=== PATIENT | female | born 1985 | race Caucasian/White ===

== ENCOUNTER → 2020-04-30 13:39 | Outpatient (BNVA) | payer OTHER, SELFPAY | PROVIDERS: PCP Hospitalist; Visit Provider Obstetrics & Gynecology | DX: Z76.89 Persons encountering health services in other specified circumstances (principal) | CPT/HCPCS: 99213 ==

== ENCOUNTER → 2020-05-23 11:51 | Outpatient (BNVA) | payer OTHER, SELFPAY | PROVIDERS: PCP Hospitalist; Visit Provider Obstetrics & Gynecology | DX: Z30.9 Encounter for contraceptive management, unspecified (principal); R45.4 Irritability and anger; F41.9 Anxiety disorder, unspecified | CPT/HCPCS: 99212 ==

== ENCOUNTER → 2020-06-09 12:19 | Outpatient (BNVA) | payer OTHER, SELFPAY | PROVIDERS: Visit Provider Obstetrics & Gynecology | DX: Z76.89 Persons encountering health services in other specified circumstances (principal) ==

== ENCOUNTER 2020-06-16 14:00 | Outpatient (RCR) | payer OTHER, SELFPAY ==
--- NOTE | 2020-05-09 16:16 | P.PNPSP_ITS ---
Subjective Subjective Date of Service: 05/07/20 Reason For Visit: depression Interim History: Pt reports that she is tolerating 50mg Sertraline without issue Also tolerating Clonidine 0.1mg QD for anxiety, reports an overall positive 2 weeks, but did have one explosive episode on Tuesday when she yelled and threw things Medication Compliance: Yes Side effects from medications: No Review of Systems Constitutional: Reports no additional constitutional complaints Denies dizziness Denies dizziness Psychiatric: Denies depression and Reports irritability Mental Status Exam Mental Status Exam Patient Appearance: Well Grooomed Level of Consciousness: Appropriate and Alert Patient Behavior: Appropriate Mood Description: Calm Affect Description: Calm Speech Pattern: Clear Thought Process: Intact Thought Content: positive for Intact Depressive Symptoms: Feelings of Guilt Abnormal Motor Activity Signs and Symptoms: Agitation Judgement: Good Assessment & Plan Assessment & Plan (1) Major depressive disorder, recurrent, mild: Status: Acute Code(s): F33.0 - Major depressive disorder, recurrent, mild Assessment and Plan: * Increase Clonidine to BID * F/u 2 weeks Greater than 50% of the session was spent on counseling and/or coordination of care Discharge Plan Discharge Attending provider: Jenny Barboza Medications: No Action clonidine HCl 0.1 mg tablet 0.1 mg PO BID PRN (Reason: anxiety) Qty: 60 RF: 0 desogestrel-ethinyl estradiol [Apri] 0.15-0.03 mg tablet 1 tab PO DAILY 28 Days Qty: 28 RF: 2
--- NOTE | 2020-05-28 13:52 | HO.PHPPROGNO ---
Subjective Subjective Date of Service: 05/28/20 Reason For Visit: depression Interim History: Pt reports she has been doing well with Sertraline and Clonidine She has been taking PM doses of Clonidine 1/2 tab at a time as it makes her sleepy in the afternoons. She tolerates AM doses well. She has discontinues her BC as she was experiencing significant agitation and irritability--has resolved since discontinuing. Medication Compliance: Yes Side effects from medications: No Review of Systems Denies dizziness Denies dizziness Psychiatric: Reports anxiety (improving) and Reports irritability (improving) Mental Status Exam Mental Status Exam Patient Appearance: Well Grooomed and Appropriate Level of Consciousness: Awake, Appropriate and Alert Patient Behavior: Appropriate Mood Description: Calm and Appropriate Affect Description: Calm and Appropriate Ability to Follow Directions: Excellent Speech Pattern: Clear Thought Content: positive for Intact and positive for Goal Oriented Judgement: Good Assessment & Plan Assessment & Plan (1) Major depressive disorder, recurrent, mild: Status: Acute Code(s): F33.0 - Major depressive disorder, recurrent, mild Assessment and Plan: No change to current regimen Refilled medications Follow up 3 weeks Greater than 50% of the session was spent on counseling and/or coordination of care Discharge Plan Discharge Attending provider: Jenny Barboza Medications: No Action desogestrel-ethinyl estradiol [Apri] 0.15-0.03 mg tablet 1 tab PO DAILY 28 Days Qty: 28 RF: 1 sertraline 50 mg tablet 50 mg PO DAILY Qty: 30 RF: 1 clonidine HCl 0.1 mg tablet 0.1 mg PO BID PRN (Reason: anxiety) Qty: 60 RF: 1
--- NOTE | 2020-06-17 14:05 | HO.OPPROGNO ---
Subjective Subjective Date of Service: 06/16/20 Reason For Visit: depression Interim History: Pt reporting that she is feeling so good . She reports that she finds current medication regimen has really helped to decrease her reactivity almost entirely. She reports that she still has feelings and gets angry, but is much more in control of her emotions and how she responds to stressors. She report that her has also noticed a difference and has made comment to her about it. She reports her DESKTOP PUBLISHING OPERATOR would like to trial Mirena, though patient is quite fearful she will have same reaction as she did with PO BC. Medication Compliance: Yes Side effects from medications: No Review of Systems Denies dizziness Denies behavioral changes and Denies dizziness Psychiatric: Denies abnormal sleep pattern, Denies behavioral changes, Denies irritability, Denies anhedonia, Denies homicidal ideation and Denies suicidal ideation Mental Status Exam Mental Status Exam Patient Appearance: Well Grooomed and Appropriate Patient Orientation: Person, Place, Time and Situation Level of Consciousness: Awake, Appropriate and Alert Patient Behavior: Appropriate Mood Description: Calm, Appropriate and Cheerful Affect Description: Calm, Appropriate and Cheerful Speech Pattern: Clear Thought Process: Intact and Goal Oriented Thought Content: positive for Intact and positive for Linear Judgement: Good Discharge Plan Discharge Attending provider: Jenny Barboza Medications: No Action sertraline 50 mg tablet 50 mg PO DAILY Qty: 30 RF: 1 clonidine HCl 0.1 mg tablet 0.1 mg PO BID PRN (Reason: anxiety) Qty: 60 RF: 1 Assessment & Plan Assessment & Plan (1) Major depressive disorder, recurrent, mild: Status: Acute Code(s): F33.0 - Major depressive disorder, recurrent, mild Assessment and Plan: No change to current regimen Continue at Sertraline 50mg QD and Clonidine 0.1mg AM and 0.05mg PRN in afternoon and evenings Greater than 50% of the session was spent on counseling and/or coordination of care
== END 2020-07-24 23:55 | disposition home or self-care (01) ==
LOC: HO.PAOS 14:00
PROVIDERS: Visit Provider Nurse Practitioner Psychiatric/Mental Health
DX: F33.0 Major depressive disorder, recurrent, mild (principal); Z79.899 Other long term (current) drug therapy

== ENCOUNTER 2020-06-30 14:00 | Outpatient (RCR) | payer OTHER, SELFPAY | END 2020-07-03 23:55 | disposition home or self-care (01) | LOC: HO.PAOS 14:00 | PROVIDERS: Visit Provider Counselor Mental Health | DX: F41.0 Panic disorder [episodic paroxysmal anxiety] (principal); F33.0 Major depressive disorder, recurrent, mild | CPT/HCPCS: 90834 ==

== ENCOUNTER 2020-07-31 09:26 | Outpatient (REF) | payer OTHER, SELFPAY ==
[2020-08-01 19:57] LABS: C. trachomatis RNA TMA NOT DETECTED (NOT DETECTED); N. gonorrhoeae RNA TMA NOT DETECTED (NOT DETECTED)
== END 2020-07-31 09:27 | disposition home or self-care (01) ==
LOC: HO.LAB 09:26
PROVIDERS: PCP Hospitalist; Visit Provider Obstetrics & Gynecology
DX: Z79.3 Long term (current) use of hormonal contraceptives (principal)
CPT/HCPCS: 36415; 87491; 87591; 99212

== ENCOUNTER 2020-09-25 15:09 | Outpatient (REF) | payer OTHER, SELFPAY ==
[2020-09-26 09:57] LABS: C. trachomatis RNA TMA NOT DETECTED (NOT DETECTED); N. gonorrhoeae RNA TMA NOT DETECTED (NOT DETECTED)
== END 2020-09-25 15:10 | disposition home or self-care (01) ==
LOC: HO.LAB 15:09
PROVIDERS: Visit Provider Obstetrics & Gynecology
DX: Z30.430 Encounter for insertion of intrauterine contraceptive device (principal); N92.0 Excessive and frequent menstruation with regular cycle; Z53.29 Procedure and treatment not carried out because of patient's decision for other reasons
CPT/HCPCS: 36415; 87491; 87591; 99212

== ENCOUNTER 2020-12-10 12:27 | Outpatient (REF) | payer OTHER, SELFPAY ==
[2020-12-10 14:05] LABS: Erythrocyte Sedimentation Rate 25 MM/HR (0-20)
[2020-12-10 14:10] LABS: Alanine Aminotransferase 20 U/L (0-31); Albumin Level 3.7 g/dL (3.5-5.0); Alkaline Phosphatase 90 U/L (39-117); Anion Gap 10 (12-20); Aspartate Amino Transferase 16 U/L (5-31); Bilirubin Total 0.4 mg/dL (0.0-1.0); Blood Urea Nitrogen 11 mg/dL (9-16); Calcium 8.8 mg/dL (8.4-10.2); Chloride 105 mmol/L (96-108); Estimated Glomerular Filt Rate > 60; Glucose Random 88 mg/dL (60-115); Potassium 4.1 mmol/L (3.3-5.1); Sodium 139 mmol/L (135-145); Total Protein 6.5 g/dL (6.5-8.0)
[2020-12-10 14:16] LABS: Carbon Dioxide 28 mmol/L (22-29)
[2020-12-10 14:44] LABS: Folate 8.9 ng/mL (> or = 4.0); Vitamin B12 341 pg/mL (200-900)
[2020-12-11 14:21] LABS: CRP High Sensitivity >10.0 mg/L
== END 2020-12-10 12:28 | disposition home or self-care (01) ==
LOC: HO.WFDLDS 12:27
PROVIDERS: Visit Provider Family Medicine
DX: G89.29 Other chronic pain (principal); M25.511 Pain in right shoulder; E53.8 Deficiency of other specified B group vitamins
CPT/HCPCS: 36415; 80053; 82607; 82746; 85652; 86141

== ENCOUNTER 2020-12-11 14:21 | Outpatient (REF) | payer OTHER, SELFPAY ==
--- NOTE | ~2020-12-11 | XR_ITS ---
EXAMINATION: XR CERVICAL SPINE CLINICAL INFORMATION: Cervicalgia. COMPARISON: Cervical spine radiographs dated 10/04/2007. TECHNIQUE: AP, lateral, and swimmer's views of the cervical spine. FINDINGS: Mild reversal of the normal cervical lordosis, which may be positional or related to muscular spasm. No acute fracture or subluxation. No loss of vertebral body height. Normal atlantoaxial alignment. Mild loss of intervertebral disc height with tiny anterior endplate osteophytes at C5-C6. No lytic or blastic osseous lesion. Unremarkable prevertebral soft tissues. XR/XR cervical spine 2V IMPRESSION: Mild reversal of the normal cervical lordosis, which may be positional or related to muscle spasm. Mild degenerative disc disease at C5-C6.
--- NOTE | ~2020-12-11 | XR_ITS ---
EXAMINATION: XR SHOULDER, RIGHT CLINICAL INFORMATION: Right shoulder pain. COMPARISON: None TECHNIQUE: AP, Grashey, scapular Y views of the right shoulder. FINDINGS: No acute fracture or dislocation. No joint space narrowing or marginal osteophytes. No osseous erosion. No abnormal soft tissue calcification. XR/XR shoulder RT min 2V IMPRESSION: Unremarkable examination.
== END 2020-12-11 14:22 | disposition home or self-care (01) ==
LOC: HO.HMGCX 14:21
PROVIDERS: PCP Hospitalist; Visit Provider Family Medicine
DX: G89.29 Other chronic pain (principal); M25.511 Pain in right shoulder; M54.2 Cervicalgia
CPT/HCPCS: 72040; 73030

== ENCOUNTER 2021-10-23 14:01 | Outpatient (REF) | payer OTHER, SELFPAY ==
[2021-10-23 17:36] LABS: MANUAL DIFF FLAG NO
[2021-10-23 17:43] LABS: Basophils Percent Auto 0.4 % (0-2); Eosinophils Absolute Auto 0.1 X10*3/uL (0.0-0.4); Hemoglobin 13.1 g/dl (12.0-16.0); Imm Gran Abs Auto 0.02 X10*3/uL (0.00-0.03); Imm Gran Pct Auto 0.2 % (0.0-0.4); Lymphocytes Absolute Auto 3.3 X10*3/uL (1.2-4.9); Lymphocytes Percent Auto 39.1 % (20-40); Mean Corpuscular HGB Conc 32.8 g/dl (31.0-35.0); Mean Corpuscular Hemoglobin 28.3 pg (27.0-33.0); Mean Corpuscular Volume 86.4 fL (80.0-98.0); Mean Platelet Volume 10.4 fL (9.4-12.3); Monocytes Absolute Auto 0.7 X10*3/uL (0.1-1.2); Monocytes Percent Auto 8.1 % (2-11); Neutrophils Absolute Auto 4.3 x10*3/uL (2.0-8.3); Neutrophils Percent Auto 51.2 % (45-73); Platelet Count 312 X10*3/uL (160-400); Red Blood Count 4.63 X10*6/uL (4.20-5.50); Red Cell Distribution Width 12.7 % (11.0-16.0); White Blood Count 8.4 X10*3/uL (4.8-10.8)
[2021-10-23 17:50] LABS: C Reactive Protein 1.54 mg/dL (< or = 0.50)
[2021-10-23 18:30] LABS: Erythrocyte Sedimentation Rate 19 MM/HR (0-20)
== END 2021-10-23 14:02 | disposition home or self-care (01) ==
LOC: HO.HMGCLDS 14:01
PROVIDERS: Visit Provider Physician Assistant Medical
DX: R51.9 Headache, unspecified (principal)
CPT/HCPCS: 36415; 85025; 85652; 86140

== ENCOUNTER 2023-07-29 11:32 | Outpatient (AMB) | payer OTHER, SELFPAY ==
[2023-07-29 11:43] VITALS: BP 110/70; BMI 39.7
--- NOTE | 2023-07-29 11:43 | MHC.PC.OV ---
Vital Signs 07/29/23 11:43 Height 5 ft 1 in Weight 210 lb 6 oz BMI 39.7 BP 110/70 Blood Pressure Location Lt brachial Position Sitting Intake Visit Reasons: Transfer of care, anxiety Intake Note: Patient is here for transfer of care, she states she is here for her anxiety. Allergies melon [MELON] Allergy (Intermediate, Verified 07/29/23 11:47) RASH pertussis vaccine,fluid [PERTUSSIS VACCINE,FLUID] Allergy (Intermediate, Verified 07/29/23 11:47) DIFFICULTY BREATHING sulfamethoxazole [From BACTRIM] Allergy (Intermediate, Verified 07/29/23 11:47) HIVES Tobacco use date assessed: 07/29/23 HPI Transfer of care, anxiety HPI Details Transfer of Care Prior PCP:?SV Last office visit/CPE: Acute issue(s): Anxiety -Sertraline 50mg has been working well for her and feels anxiety is under control. Cervical radiculitis -Has only been taking cyclobenzaprine as needed. Feels back pain is controlled. PMHx: Anxiety, cervical radiculitis SurgHx: Parial Hysterectomy. L knee arthroscopy. Appy FHx: Mom: HTN. Dad: HLD. pGM: Colon CA. mGM: DM. SocHx: Quit cigs 6-7 years ago. EtOH 2-3 drinks rarely. MJ daily. No other drugs. [facility] Medical History Normal Pap smear Annual physical exam Low back pain PCOS (polycystic ovarian syndrome) Anxiety Surgical History H/O: hysterectomy H/O arthroscopic knee surgery History of removal of cyst History of appendectomy Family History Father No problems noted. Mother Hypertension Sister In good health Paternal Grandmother Colon cancer Social History Housing: Apartment Alcohol intake: current Patient Tobacco Use Status: Former Tobacco user Years Smoked: 15 yrs e-Cigarette/Vaping Use: Currently Using Frequency of e-Cigarette/Vaping Use: CBD pen Second Hand Smoke Exposure: No service: No Current occupational status: employed Current occupation: hairdresser Current occupational exposures/hazards: No Sexual orientation: Straight/Heterosexual Gender identity: Female Cognitive needs: No Hearing needs: No Vision needs: No Questionnaire PHQ-9 Over the last 2 weeks, how often have you been bothered by any of the following problems? 1. Little interest or pleasure in doing things: not at all 2. Feeling down, depressed, or hopeless: not at all 3. Trouble falling or staying asleep, or sleeping too much: not at all 4. Feeling tired or having little energy: not at all 5. Poor appetite or overeating: not at all 6. Feeling bad about yourself - or that you are a failure or have let yourself or your family down: not at all 7. Trouble concentrating on things, such as reading the newspaper or watching television: not at all 8. Moving or speaking so slowly that other people could have noticed. Or the opposite - being so fidgety or restless that you have been moving around a lot more than usual: not at all 9. Thoughts that you would be better off or of hurting yourself in some way: not at all Total score: 0 Depression Screening Interpretation: Negative Depression Screening Done: Yes Source: Developed by Drs. Tim Kee, Ronel Frederick, Joseluis Naranjo and colleagues, with an educational vilma from [employer]. Thrive Questionnaire Date Thrive assessed: 03/18/22 LUCY-7 AMB Questionnaire LUCY-7 Date LUCY - 7 assessed: 07/29/23 Feeling nervous, anxious, or on edge: 1 = Several days Not being able to stop or control worryin = Several days Worrying too much about different things: 1 = Several days Trouble relaxin = Not at all Being so restless that it is hard to sit still: 0 = Not at all Becoming easily annoyed or irritable: 1 = Several days Feeling afraid as if something awful might happen: 0 = Not at all Total LUCY-7 score (0-4 normal; 5-9 mild; 10-14 moderate; 15-21 severe): 4 Source: Developed by Drs. Tim Kee, Ronel Frederick, Joseluis Naranjo and colleagues, with an educational vilma from [employer]. Review of Systems Const Denies chills, Denies fatigue, Denies fever(s), Denies headache(s) and Denies weakness ENT Denies dizziness and Denies headache(s) Card Denies chest pain, Denies lightheadedness, Denies dyspnea and Denies other (Palpitations) Resp Denies cough, Denies dyspnea, Denies wheezing and Denies other ( shortness of breath) Musc Denies numbness and Denies tingling Neuro Denies dizziness, Denies headache(s), Denies numbness, Denies tingling, Denies paresthesias and Denies weakness Psych Denies anxiety and Denies depression Endo Denies fatigue Aller/Immun Denies wheezing Physical exam (Primary Care) Vital Signs: Last Vital Signs BP 110/70 07/29/23 11:43 BMI result Body Mass Index 39.7 Tobacco/Smoking Status: Tobacco use Status Tobacco use date assessed 07/29/23 07/29/23 11:54 Patient Tobacco Use Status Former Tobacco user 07/29/23 11:45 e-Cigarette/Vaping Use Currently Using 07/29/23 11:54 PHQ-9: PHQ-9 Score PHQ-9: Total score 0 07/29/23 11:54 Depression Screening Interpretation: Negative Thrive Assessment: Date of Thrive Assessment Date Thrive assessed 03/18/22 07/29/23 11:45 Const General: no acute distress and well developed Nutritional Appearance: well nourished Orientation/consciousness: patient oriented x3 HENMT Head: Yes normocephalic and Yes atraumatic Eyes General: appearance normal, both eyes and all related structures Pupils: Equal, round and reactive pupils present EOM: EOMs intact bilaterally Resp Effort & Inspection: normal respiratory effort Auscultation: clear to auscultation bilaterally Cardio Rate: regular rate Rhythm: regular rhythm Heart sounds: S1 normal heart sound present, S2 normal heart sound present, no gallops, no murmurs and no rubs Neuro General: patient oriented x3 and gait normal Cranial nerves: Yes Equal, round and reactive pupils present Psych Affect: normal affect Assessment and Plan Assessment & Plan (1) Anxiety: Code(s): F41.9 - Anxiety disorder, unspecified Plan: Stable?and?controlled?on?sertraline Continue?medication?as?prescribed Has?had?a?therapist?and?says?she?can?still?contact?her?therapist?if?she?were?to?need?her?help?again. (2) Cervical radiculitis: Code(s): M54.12 - Radiculopathy, cervical region Plan: Uses?NSAIDs?and?intermittent?cyclobenzaprine Continue?current?regimen Encouraged?her?to?continue?the?exercises?she?has?learned?in?physical?therapy Currently?stable (3) Laboratory exam ordered as part of routine general medical examination: Code(s): Z00.00 - Encounter for general adult medical examination without abnormal findings Plan: Check?lab Orders: Orders Complete Blood Count Auto Diff Today Z00.00 - Encounter for general adult medical examination without abnormal findings Comprehensive Horatio. Panel Fast Today Z00.00 - Encounter for general adult medical examination without abnormal findings TSH reflex Free T4 Today Z00.00 - Encounter for general adult medical examination without abnormal findings UA and rflx microscopic Today Z00.00 - Encounter for general adult medical examination without abnormal findings Lipid Panel Today Z00.00 - Encounter for general adult medical examination without abnormal findings Microalbumin, Random (w Creat) Today I10 - Essential (primary) hypertension Coding Level of Care Code Est Pt Level 3 (70093) Diagnoses Anxiety F41.9 Cervical radiculitis M54.12 Laboratory exam ordered as part of routine general medical examination Z00.00
== END 2023-07-29 12:17 | disposition home or self-care (01) ==
PROVIDERS: PCP Hospitalist; Visit Provider Family Medicine
DX: F41.9 Anxiety disorder, unspecified (principal); M54.12 Radiculopathy, cervical region
CPT/HCPCS: 99213

== ENCOUNTER 2023-10-17 10:08 | Outpatient (REF) | payer OTHER, SELFPAY ==
[2023-10-17 11:43] LABS: MANUAL DIFF FLAG NO
[2023-10-17 12:05] LABS: Basophils Percent Auto 0.2 % (0-2); Eosinophils Absolute Auto 0.1 X10*3/uL (0.0-0.4); Eosinophils Percent Auto 1.5 % (0-4); Hematocrit 39.4 % (37.0-47.0); Hemoglobin 13.1 g/dl (12.0-16.0); Imm Gran Abs Auto 0.03 X10*3/uL (0.00-0.03); Imm Gran Pct Auto 0.3 % (0.0-0.4); Lymphocytes Absolute Auto 2.6 X10*3/uL (1.2-4.9); Lymphocytes Percent Auto 29.9 % (20-40); Mean Corpuscular HGB Conc 33.2 g/dl (31.0-35.0); Mean Corpuscular Hemoglobin 29.1 pg (27.0-33.0); Mean Corpuscular Volume 87.6 fL (80.0-98.0); Mean Platelet Volume 10.4 fL (9.4-12.3); Monocytes Absolute Auto 0.5 X10*3/uL (0.1-1.2); Monocytes Percent Auto 5.6 % (2-11); Neutrophils Absolute Auto 5.4 x10*3/uL (2.0-8.3); Neutrophils Percent Auto 62.5 % (45-73); Platelet Count 259 X10*3/uL (160-400); Red Cell Distribution Width 12.3 % (11.0-16.0); White Blood Count 8.6 X10*3/uL (4.8-10.8)
[2023-10-17 12:22] LABS: Appearance Urine Clear; Color Urine Yellow; Glucose Urine UA Negative (Negative); Leukocyte Esterase Urine Negative (Negative); Nitrite Urine Negative (Negative); PH 6.5 (5.0-9.0); Specific Gravity - Urine 1.025 (1.005-1.025); Urine Blood Negative (Negative); Urine Ketones Negative (Negative); Urine Protein Negative (Neg-Trace)
[2023-10-17 13:29] LABS: Creatinine Urine 189.93 mg/dL; Microalbum/Creatinine Ratio Ur 4.2 ug/mg cr (<30)
[2023-10-17 13:54] LABS: Alanine Aminotransferase 16 U/L (0-31); Albumin Level 3.6 g/dL (3.5-5.0); Alkaline Phosphatase 86 U/L (39-117); Anion Gap 10 (12-20); Aspartate Amino Transferase 14 U/L (5-31); Bilirubin Total 0.3 mg/dL (0.0-1.0); Blood Urea Nitrogen 10 mg/dL (9-16); Calcium 8.7 mg/dL (8.4-10.2); Carbon Dioxide 26 mmol/L (22-29); Chloride 107 mmol/L (96-108); Cholesterol 198 mg/dL (<200); Estimated Glomerular Filt Rate > 60; Glucose Fasting 78 mg/dL (60-99); HDL Cholesterol 50 mg/dL (>40); LDL Cholesterol Calculated 127 mg/dL (<100); Potassium 3.4 mmol/L (3.3-5.1); Sodium 140 mmol/L (135-145); Total Protein 6.9 g/dL (6.5-8.0); Triglycerides 105 mg/dL (<150)
[2023-10-17 14:12] LABS: TSH reflex Free T4 1.34 uIU/mL (0.32-4.0)
== END 2023-10-17 10:09 | disposition home or self-care (01) ==
LOC: HO.WFDLDS 10:08
PROVIDERS: Visit Provider Family Medicine
DX: Z00.00 Encounter for general adult medical examination without abnormal findings (principal); I10 Essential (primary) hypertension
CPT/HCPCS: 36415; 80053; 80061; 81003; 82043; 82570; 84443; 85025

== ENCOUNTER 2023-12-23 13:54 | Outpatient (AMB) | payer OTHER, SELFPAY ==
[2023-12-23 14:10] VITALS: BP 130/78; PULSE 86; O2SAT 98; BMI 39.4
--- NOTE | 2023-12-23 14:10 | MHC.PC.OV ---
Vital Signs 12/23/23 14:10 Height 5 ft 1 in Weight 208 lb 6 oz BMI 39.4 BP 130/78 Blood Pressure Location Lt brachial Position Sitting Pulse 86 Pulse Source Pulse Oximeter Pulse Oximetry (%) 98 Oxygen Delivery Method Room Air Intake Visit Reasons: CPE with f/u labs and health maint Intake Note: Patient is here for her physical today and follow up on labs. Allergies melon [MELON] Allergy (Intermediate, Verified 12/23/23 14:13) RASH pertussis vaccine,fluid [PERTUSSIS VACCINE,FLUID] Allergy (Intermediate, Verified 12/23/23 14:13) DIFFICULTY BREATHING sulfamethoxazole [From BACTRIM] Allergy (Intermediate, Verified 12/23/23 14:13) HIVES Medication List - Last Reconciled 12/23/23 by Vadim Young MD cyclobenzaprine 10 mg PO TID PRN 30 days sertraline 50 mg PO DAILY Tobacco use date assessed: 12/23/23 Dental Screening Dental Screen Date: 12/23/23 Did you have a dental visit in the last 12 months?: No Did you have a dental problem in the last 6 months where you did not have access to dental care?: No Was dental information given to patient?: Patient declined HPI CPE with f/u labs and health maint HPI Details 38 y/o female presents for a CPE with f/u labs and health maintenance. Labs were drawn 10/17/23. Reviewed labs with pt. Triglycerides 105. TC 198. LDL 127. HDL 50. She reports she has been trying to eat better and has been walking for exercise. She reports hx of hysterectomy. [facility] Medical History Normal Pap smear Annual physical exam Low back pain PCOS (polycystic ovarian syndrome) Anxiety Surgical History H/O: hysterectomy H/O arthroscopic knee surgery History of removal of cyst History of appendectomy Family History Father No problems noted. Mother Hypertension Sister In good health Paternal Grandmother Colon cancer Social History Housing: Apartment Alcohol intake: current Patient Tobacco Use Status: Former Tobacco user Years Smoked: 15 yrs e-Cigarette/Vaping Use: Currently Using Second Hand Smoke Exposure: No service: No Current occupational status: employed Current occupation: hairZopaer Current occupational exposures/hazards: No Sexual orientation: Straight/Heterosexual Gender identity: Female Cognitive needs: No Hearing needs: No Vision needs: No Questionnaire Thrive Questionnaire Date Thrive assessed: 03/18/22 LUCY-7 AMB Questionnaire LUCY-7 Date LUCY - 7 assessed: 07/29/23 Source: Developed by Drs. Tim Kee, Ronel Frederick, Joseluis Naranjo and colleagues, with an educational vilma from [employer]. Review of Systems Const Denies chills, Denies fatigue, Denies fever(s), Denies headache(s) and Denies weakness Eyes Denies change in vision ENT Denies dizziness, Denies headache(s), Denies hearing loss, Denies nasal congestion, Denies sinus pain, Denies sinus pressure and Denies sore throat Card Denies chest pain, Denies lightheadedness, Denies dyspnea and Denies other (palpitations) Resp Denies cough, Denies dyspnea and Denies wheezing GI Denies abdominal pain, Denies melena, Denies hematochezia, Denies change in bowel habits, Denies dyspepsia and Denies nausea Denies hematuria and Denies dysuria Musc Denies abnormal gait, Denies myalgias, Denies arthralgias, Denies numbness and Denies tingling Skin/Breast Denies rash, Denies unusual bruising and Denies wounds Neuro Denies abnormal gait, Denies dizziness, Denies headache(s), Denies memory loss, Denies numbness, Denies Sensory deficit (Neuro), Denies tingling and Denies weakness Psych Denies anxiety, Denies depression and Denies memory loss Endo Denies cold intolerance, Denies fatigue, Denies heat intolerance, Denies polydipsia and Denies polyuria Chetan/Lymph Denies easy bleeding and Denies easy bruising Aller/Immun Denies wheezing Physical exam (Primary Care) Vital Signs: Last Vital Signs Pulse 86 12/23/23 14:10 BP 130/78 12/23/23 14:10 Pulse Ox 98 12/23/23 14:10 Oxygen Delivery Method Room Air 12/23/23 14:10 BMI result Body Mass Index 39.4 Tobacco/Smoking Status: Tobacco use Status Tobacco use date assessed 12/23/23 12/23/23 14:16 Patient Tobacco Use Status Former Tobacco user 12/23/23 14:12 e-Cigarette/Vaping Use Currently Using 12/23/23 14:12 Thrive Assessment: Date of Thrive Assessment Date Thrive assessed 03/18/22 12/23/23 14:12 Const General: no acute distress, well developed, alert and awake Nutritional Appearance: well nourished Orientation/consciousness: patient oriented x3 HENMT Head: Yes normocephalic and Yes atraumatic Ears: hearing grossly normal bilaterally and TM's normal bilaterally General nose exam: Normal external nose present and Normal nares present Mouth: Normal oral and palatal mucosa present and moist mucous membranes Teeth and gingiva: dentition normal Throat: Yes posterior oropharynx normal Eyes General: appearance normal, both eyes and all related structures Pupils: Equal, round and reactive pupils present and Pupil accommodation reflex normal EOM: EOMs intact bilaterally Neck Neck: Yes normal visual inspection, Yes no lymphadenopathy and Yes trachea midline Thyroid: Thyroid normal Carotids: no bruits Lymphatic: no lymphadenopathy noted Chest Chest palpation & inspection: normal inspection of the chest Resp Effort & Inspection: normal respiratory effort Auscultation: clear to auscultation bilaterally Cardio Rate: regular rate Rhythm: regular rhythm Heart sounds: S1 normal heart sound present, S2 normal heart sound present, no gallops, no murmurs and no rubs Bruits: no abdominal aortic bruits and no carotid bruits GI Palpation (GI): No Abdominal aortic bruit present, Soft to palpation, nontender, No hepatosplenomegaly present and No Rebound tenderness present Auscultation: normal bowel sounds General: Yes no CVA tenderness Back/Spine/Pelvis Back: no CVA tenderness Cervical Spine: cervical ROM normal and No Cervical spine tenderness Thoracic/Lumbar Spine: thoraco-lumbar ROM normal, No pain with thoraco-lumbar ROM, No thoracic spinal tenderness and No lumbar spinal tenderness Skin Lesions: no lesions Rashes: no rashes Trauma: no lacerations or abrasions Wounds: no wounds Nails: normal Neuro General: patient oriented x3 Cranial nerves: Yes Equal, round and reactive pupils present Cognition (Neuro): normal cognition Gait exam (Neuro): Normal gait present Motor exam (neuro): 5/5 motor strength present throughout Sensory Exam: No Sensory deficit (Neuro) Deep tendon reflexes (DTR's): Right patellar reflex intensity grade: 2+ and Left patellar reflex intensity grade: 2+ Extrem General: Yes normal to inspection and No edema Psych Appearance: grossly normal Affect: normal affect Attitude: cooperative Thought process: Normal thought process present Assessment and Plan Assessment & Plan (1) Adult general medical exam: Code(s): Z00.00 - Encounter for general adult medical examination without abnormal findings Plan: 38-year-old?female?presents?for?complete?physical?exam Encouraged?healthy?diet?with?active?lifestyle?and?plenty?of?exercise (2) Hypercholesterolemia: Code(s): E78.00 - Pure hypercholesterolemia, unspecified Plan: LDL?cholesterol?is?above?goal?of?less?than?100 Encouraged?a?diet?lower?in?saturated?fats?and?cholesterol.??Encouraged?ongoing?weight?loss (3) Major depressive disorder, recurrent, mild: Code(s): F33.0 - Major depressive disorder, recurrent, mild Plan: Currently?stable Continue?sertraline (4) Carpal tunnel syndrome: Code(s): G56.00 - Carpal tunnel syndrome, unspecified upper limb Plan: Referred?to?new?[facility]??Patient?requests??Kevin (5) Screening for cervical cancer: Code(s): Z12.4 - Encounter for screening for malignant neoplasm of cervix Plan: S/p?hysterectomy Follow-up?with?your?environmental protection economist?for?regular?environmental protection economist?visit (6) Family history of colon cancer: Code(s): Z80.0 - Family history of malignant neoplasm of digestive organs Plan: Family?history?of?colon?cancer.??Will?start?screening?at?age?40 Referred?to?Gastroenterology (7) Screening for colon cancer: Code(s): Z12.11 - Encounter for screening for malignant neoplasm of colon Plan: As?above Orders: Referrals Hand Surgery Referral G56.00 - Carpal tunnel syndrome, unspecified upper limb Gastroenterology Referral Z12.11 - Encounter for screening for malignant neoplasm of colon, Z80.0 - Family history of malignant neoplasm of digestive organs Coding Level of Care Code Est Pt Level 3 (79688) Est Pt Prev Care 18-39y([id number]) Diagnoses Adult general medical exam Z00.00 Hypercholesterolemia E78.00 Major depressive disorder, recurrent, mild F33.0 Carpal tunnel syndrome G56.00 Screening for cervical cancer Z12.4 Family history of colon cancer Z80.0 Screening for colon cancer Z12.11
== END 2023-12-23 15:05 | disposition home or self-care (01) ==
PROVIDERS: PCP Family Medicine; Visit Provider Family Medicine
DX: Z00.00 Encounter for general adult medical examination without abnormal findings (principal); F33.0 Major depressive disorder, recurrent, mild; E78.00 Pure hypercholesterolemia, unspecified; G56.00 Carpal tunnel syndrome, unspecified upper limb; Z80.0 Family history of malignant neoplasm of digestive organs; Z12.11 Encounter for screening for malignant neoplasm of colon
CPT/HCPCS: 99395

== ENCOUNTER 2024-07-30 09:31 | Outpatient (AMB) | payer OTHER, SELFPAY ==
[2024-07-30 09:34] VITALS: BP 128/76; PULSE 74; O2SAT 98; BMI 39.7
--- NOTE | 2024-07-30 09:34 | MHC.OFFVIS ---
Vital Signs 07/30/24 09:34 Height 5 ft 1 in Weight 209 lb 14.081 oz BMI 39.7 BP 128/76 Blood Pressure Location Rt brachial Position Sitting Pulse 74 Pulse Source Pulse Oximeter Pulse Oximetry (%) 98 Oxygen Delivery Method Room Air Intake Visit Reasons: Colonoscopy Screening Intake Note: NEW PATIENT Reason; in office colo scrn Prior hx of colo/egd? Initial Concerns/Questions? No significant concerns per pt. Allergies melon [MELON] Allergy (Intermediate, Verified 07/30/24 09:34) RASH pertussis vaccine,fluid [PERTUSSIS VACCINE,FLUID] Allergy (Intermediate, Verified 07/30/24 09:34) DIFFICULTY BREATHING sulfamethoxazole [From BACTRIM] Allergy (Intermediate, Verified 07/30/24 09:34) HIVES HPI HPI Colonoscopy Screening: Details: 39 year old? female with past medical history of carpal tunnel syndrome, obesity, anxiety, depression is here today for pre colonoscopy screening.? Patient was sent to us by her PCP.? This is her first colonoscopy screening.? Paternal grandmother diagnosed with colorectal cancer before age 50. Patient denies any gastrointestinal symptoms in the past or at present.? ? Denies history of difficulty with sedation or anesthesia in the past.? Negative for history of sleep apnea, however patient is going for sleep study. Patient reports that she snores when she sleeps.? Denies any history of cardiac, renal, pulmonary, or hepatic disease.?? No history of infectious? diseases like hepatitis A, B, C, HIV or tuberculosis.? Patient is not on any anticoagulation [facility] Medical History Anal warts (~2012) Normal Pap smear Annual physical exam Low back pain PCOS (polycystic ovarian syndrome) Anxiety Surgical History H/O: hysterectomy H/O arthroscopic knee surgery History of removal of cyst History of appendectomy Family History Father No problems noted. Mother Hypertension Sister In good health Paternal Grandmother Colon cancer Social History Housing: Apartment Alcohol intake: current Patient Tobacco Use Status: Former Tobacco user Years Smoked: 15 yrs e-Cigarette/Vaping Use: Currently Using Second Hand Smoke Exposure: No service: No Current occupational status: employed Current occupation: [employer] Current occupational exposures/hazards: No Sexual orientation: Straight/Heterosexual Gender identity: Female Cognitive needs: No Hearing needs: No Vision needs: No Review of Systems Const Denies weight gain and Denies weight loss ENT Reports no additional complaints, Denies dysphagia and Denies odynophagia Card Reports no additional complaints Resp Reports no additional complaints GI Denies abdominal pain, Denies belching, Denies melena, Denies bloating, Denies change in bowel habits, Denies dysphagia, Denies excessive flatus, Denies dyspepsia, Denies heartburn, Denies diarrhea, Denies loose stools, Denies nausea, Denies odynophagia and Denies vomiting Musc Reports no additional complaints Neuro Reports no additional complaints Psych Reports no additional complaints Endo Reports no additional complaints Physical Exam Vital Signs: Last Vital Signs Pulse 74 07/30/24 09:34 BP 128/76 07/30/24 09:34 Pulse Ox 98 07/30/24 09:34 Oxygen Delivery Method Room Air 07/30/24 09:34 BMI result Body Mass Index 39.7 Const General: healthy appearing and no acute distress Nutritional Appearance: obese Orientation/consciousness: patient oriented x3 Resp Effort & Inspection: normal respiratory effort, able to speak in complete sentences, no tracheal deviation and symmetric chest movement Auscultation: clear to auscultation bilaterally Cardio Rate: regular rate GI Inspection: Yes normal to inspection, No distended and Yes obesity Palpation (GI): Soft to palpation, not firm, nontender and No hepatosplenomegaly present Auscultation: normal bowel sounds General: Yes no CVA tenderness Back/Spine/Pelvis Back: no CVA tenderness Skin General skin exam: elasticity normal, turgor normal and dry skin Neuro General: patient oriented x3 Psych Appearance: grossly normal Mental Status: mental status grossly normal Assessment & Plan Assessment & Plan (1) Screening for colon cancer: Code(s): Z12.11 - Encounter for screening for malignant neoplasm of colon Category: Medical (2) Family history of colon cancer: Code(s): Z80.0 - Family history of malignant neoplasm of digestive organs Category: Medical Plan Patient denies any GI, cardiac or respiratory symptoms.? Denies any issues with anesthesia in the past.? Denies any history of sleep apnea.? No history infectious diseases in the past or present.? Not on any anticoagulation therapy.? Family history of CRC. Patient's paternal grandmother was diagnosed with CRC before age 50. Patient denies melena, hematochezia, unintentional weight loss or ribbon like stools.? Discussed at length the pre-procedure,? prep, diet & medications as well as what to expect prior, during and after the procedure.?? Stressed the importance of good bowel prep.? Recommended the use of Vaseline or Calmoseptine OTC & baby wipes with bowel movements to promote comfort.? ?Patient verbalizes understanding and agrees to plan of care.? She was given the opportunity to ask questions and all questions answered.? We will see her after the procedure.? Medications: New polyethylene glycol 3350 (Miralax) As directed by gastroenterology department at [facility] 238 grams PO ONCE 238 grams 0RF Z12.11 - Encounter for screening for malignant neoplasm of colon bisacodyl (Dulcolax (bisacodyl)) take 4 tabs at noon the day before your colonoscopy 20 mg (4 x 5 mg) PO ONCE 1 day 4 tabs 0RF Z12.11 - Encounter for screening for malignant neoplasm of colon Coding Level of Care Code New Pt Level 3 (27102) Diagnoses Screening for colon cancer Z12.11 Family history of colon cancer Z80.0 Time Spent (min) 40 Comment 30 minutes spent with patient and additional 10 minutes spent reviewing her records
== END 2024-07-30 11:12 | disposition home or self-care (01) ==
PROVIDERS: PCP Family Medicine; Visit Provider Nurse Practitioner Family
DX: Z01.818 Encounter for other preprocedural examination (principal); Z12.11 Encounter for screening for malignant neoplasm of colon; Z80.0 Family history of malignant neoplasm of digestive organs
CPT/HCPCS: 99202

== ENCOUNTER 2024-12-14 10:38 | Outpatient (REF) | payer OTHER, SELFPAY ==
--- OUTSIDE RECORDS SUMMARY | 2024-12-14 10:42 | XMS_ITS | Clinical Summary ---
Author Organization [address] [facility] Address [address] [place] [address] Phone Care Team Providers Care Row Boss Name Role Phone Vadim Young MD Primary Care Provider [phone] Allergies Active Allergy Reactions Criticality Noted Date Comments Cantaloupe 05/01/2024 Sulfamethoxazole-Trimethoprim 2018 Medications sertraline (ZOLOFT) 20 mg/mL concentrated solution Take 25 mg by mouth daily Active cyclobenzaprine (FLEXERIL) 10 mg tablet Take 1 tablet (10 mg total) by mouth 3 (three) times a day if needed for muscle spasms. 09/18/2023 Active Hospital, Clinic, or Other Facility Administered Medication Ordered Dose Route Frequency Start Date End Date Status triamcinolone acetonide (KENALOG-40) 40 mg/mL injection 40 mgIndications:Bilate ral carpal tunnel syndrome 40 mg syno Once PRN Procedure 11/26/2024 11/26/2024 Ended triamcinolone acetonide (KENALOG-40) 40 mg/mL injection 40 mgIndications:Bilate ral carpal tunnel syndrome 40 mg syno Once PRN Procedure 11/26/2024 11/26/2024 Ended Active Problems Problem Noted Date Diagnosed Date Bilateral carpal tunnel syndrome 06/11/2024 Melanocytic nevi of scalp and neck 09/29/2018 Changing pigmented skin lesion 08/22/2018 Encounters Date Type Department Care Team Description 11/26/2024 9:30 AM EDT Office Visit Orthopedic Surgery [facility] [address] [facility] [address] [place] [address] Laurel Perez MD Bilateral carpal tunnel syndrome (Primary Dx) from Last 3 Months Surgical History Surgery Date Site/Laterality Comments WRIST MASS EXCISION 07/25/2000 - 07/24/2001 Left Family History Medical History Relation Name Comments Hypertension Mother Relation Name Status Comments Father Alive Mother Alive Social History Tobacco Use Types Packs/Day Years Used Date Smoking Tobacco: Every Day Cigarettes Smokeless Tobacco: Never Alcohol Use Standard Drinks/Week Comments Yes 0 (1 standard drink = 0.6 oz pur e alcohol) Comments Unknown Sex and Gender Information Value Date Recorded Sex Assigned at Not on file Legal Sex Female 9:22 AM EST Gender Identity Not on file Sexual Orientation Not on file Obstetrics History Last Filed Vital Signs Vital Sign Reading Time Taken Comments Blood Pressure - - Pulse - - Temperature - - Respiratory Rate - - Oxygen Saturation - - Inhaled Oxygen Concentration - - Weight 90.7 kg (200 lb) 11/26/2024 9:31 AM EDT Height 154.9 cm (5' 1 ) 11/26/2024 9:31 AM EDT Body Mass Index 37.79 11/26/2024 9:31 AM EDT Plan of Treatment Health Maintenance Due Date Last Done Comments Breast Cancer Screening 1984 Hepatitis B Vaccines (1 of 3 - 19+ 3-dose series) 2003 Pneumococcal Vaccine: Pediatrics (0 to 5 Years) and At-Risk Patients (6 to 64 Years) (1 of 2 - PCV) 2003 Cervical Cancer Screening: P ap Smear 2005 COVID-19 Vaccine (3 - Pfizer risk series) 12/11/2020 11/13/2020, 10/23/2020 DTaP,Tdap,and Td Vaccines (2 - Td or Tdap) 11/03/2022 11/03/2012 Cholesterol Screening (Lipid Panel) 05/01/2024 Depression Screening 05/01/2024 HIV Screening 05/01/2024 Hepatitis C Screening 05/01/2024 Social Influencers of Health Screening 05/01/2024 Influenza Vaccine (Season Ended) 2025 HIB Vaccines Aged Out No longer eligi ble based on patient's age to complete this topic HPV Vaccines Aged Out No longer eligi ble based on patient's age to complete this topic Hepatitis A Vaccines Aged Out No long er eligible based on patient's age to complete this topic IPV Vaccines Aged Out No longer eligi ble based on patient's age to complete this topic MMR Vaccines Aged Out No longer eligi ble based on patient's age to complete this topic Meningococcal ACWY Vaccine Aged Out N o longer eligible based on patient's age to complete this topic Meningococcal B Vaccine Aged Out No l onger eligible based on patient's age to complete this topic RSV Immunization Patients Under 20 months Aged Out No longer eligible b ased on patient's age to complete this topic Varicella Vaccines Aged Out No longer eligible based on patient's age to complete this topic Procedures Procedure Name Priority Date/Time Associated Diagnosis Comments [place] INJECTION CARPAL TUNNEL THERAPEUTIC Routine 11/26/2024 9:30 AM EDT Bilateral carpal tunnel syndrome from Last 3 Months Results * [place] INJECTION CARPAL TUNNEL THERAPEUTIC (11/26/2024 9:30 AM EDT) Narrative Laurel Perez MD - 11/26/2024 9:30 AM EDT Laurel Perez MD ? 11/26/2024 ??1:28 PM Hand / UE Inj/Asp: bilateral carpal tunnel for carpal tunnel syndrome Indications: pain Details: 25 G needle, volar approach Medications (Right): 40 mg triamcinolone acetonide 40 mg/mL Medications (Left): 40 mg triamcinolone acetonide 40 mg/mL Patient's wrists were prepped with Betadine alcohol. ??A small wheal of 1% lidocaine with epinephrine was injected a centimeter and a half back from the primary flexion crease of the wrist and slightly ulnar of the palmaris. ??Once that had a chance to take effect we prepped the skin again and then I injected first the right and then the left wrist with Kenalog. ?? 25-gauge needle was utilized and slowly entered into the canal. ??I confirmed that we were within substance of the tendons. ??We then injected medication without difficulty. ??This process was then completed again on the left side. ??Bandages were applied. ??Patient tolerated this well. Informed Consent: ??Laterality: ??Bilateral ??Procedure/treatment, purpose, treatment alternatives, risks/potential complications and benefits explained: yes ?Consent given by: ??Patient ??Pre-procedure timeout performed: yes ?? us Laurel Perez MD IN CLINIC/BEDSIDE ORDERABLES Final Result from Last 3 Months Insurance MEDICAID - [place] Care Teams Row Boss Relationship Specialty Start Date End Date Vadim Young MD [address] [place] [address] Dr Rudy MA PCP - General 01/10/24
[2024-12-14 14:13] LABS: MANUAL DIFF FLAG NO
[2024-12-14 14:25] LABS: Basophils Percent Auto 0.5 % (0-2); Eosinophils Absolute Auto 0.1 X10*3/uL (0.0-0.4); Eosinophils Percent Auto 0.8 % (0-4); Hematocrit 42.3 % (37.0-47.0); Hemoglobin 13.8 g/dl (12.0-16.0); Imm Gran Abs Auto 0.02 X10*3/uL (0.00-0.03); Imm Gran Pct Auto 0.2 % (0.0-0.4); Lymphocytes Absolute Auto 2.5 X10*3/uL (1.2-4.9); Lymphocytes Percent Auto 30.1 % (20-40); Mean Corpuscular HGB Conc 32.6 g/dl (31.0-35.0); Mean Corpuscular Hemoglobin 29.4 pg (27.0-33.0); Mean Corpuscular Volume 90.2 fL (80.0-98.0); Mean Platelet Volume 10.3 fL (9.4-12.3); Monocytes Absolute Auto 0.6 X10*3/uL (0.1-1.2); Monocytes Percent Auto 7.2 % (2-11); Neutrophils Absolute Auto 5.1 x10*3/uL (2.0-8.3); Neutrophils Percent Auto 61.2 % (45-73); Platelet Count 248 X10*3/uL (160-400); Red Blood Count 4.69 X10*6/uL (4.20-5.50); Red Cell Distribution Width 12.1 % (11.0-16.0); White Blood Count 8.3 X10*3/uL (4.8-10.8)
[2024-12-14 14:31] LABS: Appearance Urine Clear; Color Urine Yellow; Glucose Urine UA Negative (Negative); Leukocyte Esterase Urine Negative (Negative); Nitrite Urine Negative (Negative); Specific Gravity - Urine 1.025 (1.005-1.025); Urine Blood Negative (Negative); Urine Ketones Negative (Negative); Urine Protein Negative (Neg-Trace)
[2024-12-14 14:48] LABS: Alanine Aminotransferase 19 U/L (0-31); Albumin Level 3.9 g/dL (3.5-5.0); Alkaline Phosphatase 76 U/L (39-117); Anion Gap 8 (12-20); Aspartate Amino Transferase 21 U/L (5-31); Bilirubin Total 0.3 mg/dL (0.0-1.0); Blood Urea Nitrogen 16 mg/dL (9-16); Calcium 9.5 mg/dL (8.4-10.2); Carbon Dioxide 29 mmol/L (22-29); Chloride 107 mmol/L (96-108); Cholesterol 205 mg/dL (<200); Estimated Glomerular Filt Rate > 60; Glucose Fasting 78 mg/dL (60-99); HDL Cholesterol 55 mg/dL (>40); LDL Cholesterol Calculated 138 mg/dL (<100); Potassium 3.9 mmol/L (3.3-5.1); Sodium 140 mmol/L (135-145); Total Protein 7.1 g/dL (6.5-8.0); Triglycerides 62 mg/dL (<150)
[2024-12-14 15:05] LABS: TSH reflex Free T4 0.73 uIU/mL (0.32-4.0)
[2024-12-14 15:32] LABS: Creatinine Urine 126.34 mg/dL; Microalbumin Urine < 5.0 mg/L
== END 2024-12-14 10:39 | disposition home or self-care (01) ==
LOC: HO.WFDLDS 10:38
PROVIDERS: Visit Provider Family Medicine
DX: Z00.00 Encounter for general adult medical examination without abnormal findings (principal); Z80.0 Family history of malignant neoplasm of digestive organs; I10 Essential (primary) hypertension
CPT/HCPCS: 36415; 80053; 80061; 81003; 82043; 82570; 84443; 85025

== ENCOUNTER 2024-12-24 08:47 | Outpatient (AMB) | payer OTHER, SELFPAY ==
--- NOTE | 2024-12-24 08:54 | A.OFFPC_ITS ---
Vital Signs 12/24/24 08:57 Height 5 ft 1 in Weight 202 lb 8 oz BMI 38.3 BP 110/80 Blood Pressure Location Rt brachial Position Sitting Respiration 14 Pulse 57 Pulse Source Pulse Oximeter Temp 97.9 F Temp Source Oral Pulse Oximetry (%) 98 Oxygen Delivery Method Room Air Intake Visit Reasons: CPE with f/u labs and health maint Intake Note: patient is scheduled for cpe Airline Customer Service Agent Required: No Is last menstrual period known: No Post menopausal: No Patient : No Allergies melon [MELON] Allergy (Intermediate, Verified 12/24/24 08:55) RASH pertussis vaccine,fluid [PERTUSSIS VACCINE,FLUID] Allergy (Intermediate, Verified 12/24/24 08:55) DIFFICULTY BREATHING sulfamethoxazole [From BACTRIM] Allergy (Intermediate, Verified 12/24/24 08:55) HIVES Medication List - Last Reconciled 12/24/24 by Vadim Young MD bisacodyl (Dulcolax (bisacodyl)) 20 mg (4 x 5 mg) PO ONCE 1 day cyclobenzaprine 10 mg PO TID PRN 30 days polyethylene glycol 3350 (Miralax) 238 grams PO ONCE sertraline 50 mg PO DAILY Tobacco use date assessed: 12/24/24 Dental Screening Dental Screen Date: 12/24/24 Did you have a dental visit in the last 12 months?: Yes Did you have a dental problem in the last 6 months where you did not have access to dental care?: No Was dental information given to patient?: Patient has dentist HPI CPE with f/u labs and health maint HPI Details 39 y/o female presents for a CPE with f/ u labs and health maint. Labs drawn 12/14/24. Reviewed labs with pt. Triglycerides 62. TC 205. LDL 138. HDL 55. TSH 0.73. She notes she has started exercising and would like to trial getting her cholesterol levels down without meds. Has been following up with a specialist for her carpal tunnel. Mammogram last April which was fine. Hx of hysterectomy. She notes she is no longer getting periods and is not getting anymore pap smears. Colonoscopy scheduled this month. HPI Comments History of Present Illness Details Documentation assistance for Vadim Young MD, was provided by Gerry Spear,? Diesel Pile Hammer Operator on 12/24/2024 at 9:[address] Adonis ALONZOiano, have read, observed, and verified documentation. [facility] Medical History Anal warts (~2012) Normal Pap smear Annual physical exam Low back pain PCOS (polycystic ovarian syndrome) Anxiety Surgical History H/O: hysterectomy H/O arthroscopic knee surgery History of removal of cyst History of appendectomy Family History Father No problems noted. Mother Hypertension Sister In good health Paternal Grandmother Colon cancer Social History Housing: Apartment Alcohol intake: current Patient Tobacco Use Status: Former Tobacco user Years Smoked: 15 yrs e-Cigarette/Vaping Use: Currently Using Second Hand Smoke Exposure: No service: No Current occupational status: employed Current occupation: [employer] Current occupational exposures/hazards: No Sexual orientation: Straight/Heterosexual Gender identity: Female Cognitive needs: No Hearing needs: No Vision needs: No Questionnaire PHQ-9 Over the last 2 weeks, how often have you been bothered by any of the following problems? 1. Little interest or pleasure in doing things: not at all 2. Feeling down, depressed, or hopeless: not at all 3. Trouble falling or staying asleep, or sleeping too much: not at all 4. Feeling tired or having little energy: not at all 5. Poor appetite or overeating: not at all 6. Feeling bad about yourself - or that you are a failure or have let yourself or your family down: not at all 7. Trouble concentrating on things, such as reading the newspaper or watching television: not at all 8. Moving or speaking so slowly that other people could have noticed. Or the opposite - being so fidgety or restless that you have been moving around a lot more than usual: not at all 9. Thoughts that you would be better off or of hurting yourself in some way: not at all Total score: 0 Depression Screening Interpretation: Negative Depression Screening Done: Yes 20397 - PHQ-9 Billing: Yes Source: Developed by Drs. Tim L. oRnel Kee Kurt Kroenke and colleagues, with an educational vilma from [employer]. Thrive Questionnaire Date Thrive assessed: 12/17/24 I am a: Patient What is your living situation today?: I have a steady place to live Within the past 12 months, did the food you bought not last and you didn't have the money to get more?: Never true Within the past 12 months, did you worry whether your food would run out before you got money to buy more?: Never true Do you have trouble paying for medicines?: No Do you have trouble getting transportation to medical appointments?: No Do you have trouble paying your heating and electricity bill?: No Do you have trouble taking care of your child, family member or friend?: No Do you have trouble with day-to-day activities such as bathing, preparing meals, shopping, managing finances, etc.?: No Are you currently unemployed and looking for a job?: No Are you interested in more education?: No Please select the resources that you would like help with: None Currently or been in a relationship where the following occur: No concerns reported THRIVE Score: 0 AUDIT C Alcohol Use Questionnaire (AUDIT-C) 1. How often do you have a drink containing alcohol?: Monthly or less 2. How many drinks containing alcohol do you have on a typical day when you are drinking?: 3 or 4 3. How often do you have six or more drinks on one occasion?: Never Total Score: 2 LUCY-7 AMB Questionnaire LUCY-7 Date LUCY - 7 assessed: 12/24/24 Feeling nervous, anxious, or on edge: 1 = Several days Not being able to stop or control worryin = Several days Worrying too much about different things: 1 = Several days Trouble relaxin = Several days Being so restless that it is hard to sit still: 0 = Not at all Becoming easily annoyed or irritable: 1 = Several days Feeling afraid as if something awful might happen: 0 = Not at all Total LUCY-7 score (0-4 normal; 5-9 mild; 10-14 moderate; 15-21 severe): 5 Source: Developed by Ronel Corbett Kurt Kroenke and colleagues, with an educational vilma from [employer]. LUCY-7 Assessment Billing LUCY-7 Assessment Tool: LUCY-7 Assessment 74328 Review of Systems Const Denies chills, Denies fatigue, Denies fever(s), Denies headache(s) and Denies weakness Eyes Denies change in vision ENT Denies dizziness, Denies headache(s), Denies hearing loss, Denies nasal congestion, Denies sinus pain, Denies sinus pressure and Denies sore throat Card Denies chest pain, Denies lightheadedness, Denies dyspnea and Denies other (palpitations) Resp Denies cough, Denies dyspnea and Denies wheezing GI Denies abdominal pain, Denies melena, Denies hematochezia, Denies change in bowel habits, Denies dyspepsia and Denies nausea Denies hematuria and Denies dysuria Musc Denies abnormal gait, Denies myalgias, Denies arthralgias, Denies numbness and Denies tingling Skin/Breast Denies rash, Denies unusual bruising and Denies wounds Neuro Denies abnormal gait, Denies dizziness, Denies headache(s), Denies memory loss, Denies numbness, Denies Sensory deficit (Neuro), Denies tingling and Denies weakness Psych Denies anxiety, Denies depression and Denies memory loss Endo Denies cold intolerance, Denies fatigue, Denies heat intolerance, Denies polydipsia and Denies polyuria Chetan/Lymph Denies easy bleeding and Denies easy bruising Aller/Immun Denies wheezing Physical exam (Primary Care) Vital Signs: Last Vital Signs Temp 97.9 F 12/24/24 08:57 Pulse 57 12/24/24 08:57 Resp 14 12/24/24 08:57 BP 110/80 12/24/24 08:57 Pulse Ox 98 12/24/24 08:57 Oxygen Delivery Method Room Air 12/24/24 08:57 BMI result Body Mass Index 38.3 Tobacco/Smoking Status: Tobacco use Status Tobacco use date assessed 12/24/24 12/24/24 09:02 Patient Tobacco Use Status Former Tobacco user 12/24/24 09:02 e-Cigarette/Vaping Use Currently Using 12/24/24 09:02 PHQ-9: PHQ-9 Score PHQ-9: Total score 0 12/24/24 09:02 Depression Screening Interpretation: Negative Thrive Assessment: Date of Thrive Assessment Date Thrive assessed 12/17/24 12/24/24 09:02 Currently or been in a relationship where the following occur: No concerns reported Const General: no acute distress, well developed, alert and awake Nutritional Appearance: well nourished and obese Orientation/consciousness: patient oriented x3 HENMT Head: Yes normocephalic and Yes atraumatic Ears: hearing grossly normal bilaterally and TM's normal bilaterally General nose exam: Normal external nose present and Normal nares present Mouth: Normal oral and palatal mucosa present and moist mucous membranes Teeth and gingiva: dentition normal Throat: Yes posterior oropharynx normal Eyes General: appearance normal, both eyes and all related structures Pupils: Equal, round and reactive pupils present and Pupil accommodation reflex normal EOM: EOMs intact bilaterally Neck Neck: Yes normal visual inspection, Yes no lymphadenopathy and Yes trachea midline Thyroid: Thyroid normal Carotids: no bruits Lymphatic: no lymphadenopathy noted Chest Chest palpation & inspection: normal inspection of the chest Resp Effort & Inspection: normal respiratory effort Auscultation: clear to auscultation bilaterally Cardio Rate: regular rate Rhythm: regular rhythm Heart sounds: S1 normal heart sound present, S2 normal heart sound present, no gallops, no murmurs and no rubs Bruits: no abdominal aortic bruits and no carotid bruits GI Palpation (GI): No Abdominal aortic bruit present, Soft to palpation, nontender, No hepatosplenomegaly present and No Rebound tenderness present Auscultation: normal bowel sounds General: Yes no CVA tenderness Back/Spine/Pelvis Back: no CVA tenderness Cervical Spine: cervical ROM normal and No Cervical spine tenderness Thoracic/Lumbar Spine: thoraco-lumbar ROM normal, No pain with thoraco-lumbar ROM, No thoracic spinal tenderness and No lumbar spinal tenderness Skin Lesions: no lesions Rashes: no rashes Trauma: no lacerations or abrasions Wounds: no wounds Nails: normal Neuro General: patient oriented x3 Cranial nerves: Yes Equal, round and reactive pupils present Cognition (Neuro): normal cognition Gait exam (Neuro): Normal gait present Motor exam (neuro): 5/5 motor strength present throughout Sensory Exam: No Sensory deficit (Neuro) Deep tendon reflexes (DTR's): Right patellar reflex intensity grade: 2+ and Left patellar reflex intensity grade: 2+ Extrem General: Yes normal to inspection and No edema Psych Appearance: grossly normal Affect: normal affect Attitude: cooperative Thought process: Normal thought process present Coding Level of Care Code Est Pt Level 3 (87092) Est Pt Prev Care 40-64y(39660) Diagnoses Adult general medical exam Z00.00 Hypercholesterolemia E78.00 Carpal tunnel syndrome G56.00 Family history of colon cancer Z80.0 Screening for colon cancer Z12.11 Screening for cervical cancer Z12.4 Breast cancer screening by mammogram Z12.31 Additional Codes LUCY-7 Assessment Billing - LUCY-7 Assessment Tool: LUCY-7 Assessment 25850 ([id number]) PHQ-9 - 20010 - PHQ-9 Billing: Yes ([id number]) Assessment & Plan Assessment & Plan (1) Adult general medical exam: Code(s): Z00.00 - Encounter for general adult medical examination without abnormal findings Category: Medical Plan: 39-year-old?female?presents?for?complete?physical?exam Encouraged?healthy?diet?with?active?lifestyle?and?plenty?of?exercise (2) Hypercholesterolemia: Code(s): E78.00 - Pure hypercholesterolemia, unspecified Category: Medical Plan: LDL?cholesterol?has?risen?and?is?above?goal?of?less?than?100 She?would?like?to?work?on?lifestyle?changes?and?follow-up?in?about?6?months. Encouraged?a?diet?lower?in?saturated?fats?and?cholesterol. Encouraged?ongoing?exercise Will?recheck?lipids?in?6?months (3) Carpal tunnel syndrome: Code(s): G56.00 - Carpal tunnel syndrome, unspecified upper limb Category: Medical Plan: Followed?by? She?is?receiving?injections?and?this?is?helping Would?consider?surgery?if?injections?are?no?longer?helping. (4) Family history of colon cancer: Code(s): Z80.0 - Family history of malignant neoplasm of digestive organs Category: Medical Plan: Has?colonoscopy?scheduled?this?month (5) Screening for colon cancer: Code(s): Z12.11 - Encounter for screening for malignant neoplasm of colon Category: Medical Plan: Has?colonoscopy?scheduled?this?month (6) Screening for cervical cancer: Code(s): Z12.4 - Encounter for screening for malignant neoplasm of cervix Category: Medical Plan: S/p?hysterectomy (7) Breast cancer screening by mammogram: Code(s): Z12.31 - Encounter for screening mammogram for malignant neoplasm of breast Category: Medical Plan: Mammogram?in?April?was?negative?for?mammographic?evidence?of?malignancy?and?re commended?annual?screening Up-to-date Orders: Orders Comprehensive [place]. Panel Fast Today E78.00 - Pure hypercholesterolemia, unspecified, Z00.00 - Encounter for general adult medical examination without abnormal findings MM tomosynthesis screening BI Today Z12.31 - Encounter for screening mammogram for malignant neoplasm of breast Lipid Panel Today E78.00 - Pure hypercholesterolemia, unspecified, Z00.00 - Encounter for general adult medical examination without abnormal findings
[2024-12-24 08:57] VITALS: BP 110/80; PULSE 57; RESP 14; TEMP 36.6; O2SAT 98; BMI 38.3
--- OUTSIDE RECORDS SUMMARY | 2024-12-24 09:11 | XMS_ITS | Clinical Summary ---
Author Organization 175 [facility] Address [address] [place] [address] Phone Care Team Providers Care Financial Reporting Advisor Name Role Phone Vadim Young MD Primary Care Provider [phone] Allergies Active Allergy Reactions Criticality Noted Date [...] 9:30 AM EDT Office Visit Orthopedic Surgery [facility] [address] [facility] [address] [place] [address] Laurel Perez MD Bilateral carpal [...] Procedure Name Priority Date/Time Associated Diagnosis Comments AL INJECTION CARPAL TUNNEL THERAPEUTIC Routine 11/26/2024 9:30 AM EDT Bilateral carpal tunnel syndrome from Last 3 Months Results * AL INJECTION CARPAL TUNNEL THERAPEUTIC (11/26/2024 9:30 AM [...] Months Insurance [place] - [place] Care Teams Financial Reporting Advisor Relationship Specialty Start Date End Date Vadim Young MD [address] [place] [address] Dr Rudy [place] PCP - General 01/10/24
== END 2024-12-24 09:32 | disposition home or self-care (01) ==
LOC: HO.HMCFM 08:47
PROVIDERS: PCP Family Medicine; Visit Provider Family Medicine
DX: Z00.00 Encounter for general adult medical examination without abnormal findings (principal); E78.00 Pure hypercholesterolemia, unspecified; G56.00 Carpal tunnel syndrome, unspecified upper limb; Z80.0 Family history of malignant neoplasm of digestive organs; Z12.11 Encounter for screening for malignant neoplasm of colon; Z12.31 Encounter for screening mammogram for malignant neoplasm of breast

== ENCOUNTER → 2024-12-24 08:47 | Outpatient (BNVA) | payer OTHER, SELFPAY | PROVIDERS: PCP Family Medicine; Visit Provider Family Medicine | DX: Z00.00 Encounter for general adult medical examination without abnormal findings (principal); E78.00 Pure hypercholesterolemia, unspecified; G56.00 Carpal tunnel syndrome, unspecified upper limb | CPT/HCPCS: 96127; 99396 ==

== ENCOUNTER 2025-01-07 07:47 | Day surgery (SDC) | payer OTHER, SELFPAY ==
--- OUTSIDE RECORDS SUMMARY | 2025-01-01 10:14 | XMS_ITS | Clinical Summary ---
Author Organization 175 [facility] Address [address] [place] [address] Phone Care Team Providers Care Inspector Eyeglass Frames Name Role Phone Vadim Young MD Primary Care Provider [phone]- [phone] Allergies Active Allergy Reactions Criticality Noted Date Comments Cantaloupe 05/01/2024 Sulfamethoxazole-Trimethoprim 2018 Medications sertraline (ZOLOFT) 20 mg/mL concentrated solution Take 25 mg by mouth daily Active cyclobenzaprine (FLEXERIL) 10 mg tablet Take 1 tablet (10 mg total) by mouth 3 (three) times a day if needed for muscle spasms. 09/18/2023 Active Active Problems Problem Noted Date Diagnosed Date Bilateral carpal tunnel syndrome 06/11/2024 Melanocytic nevi of scalp and neck 09/29/2018 Changing pigmented skin lesion 08/22/2018 Encounters Date Type Department Care Team Description 11/26/2024 9:30 AM EDT Office Visit Orthopedic Surgery [address] [place] [address] Laurel Perez MD Bilateral carpal [...] Procedure Name Priority Date/Time Associated Diagnosis Comments IA INJECTION CARPAL TUNNEL THERAPEUTIC Routine 11/26/2024 9:30 AM EDT Bilateral carpal tunnel syndrome from Last 3 Months Results * IA INJECTION CARPAL TUNNEL THERAPEUTIC (11/26/2024 9:30 AM EDT) Laurel Jiang MD - 11/26/2024 9:30 AM EDT Laurel [...] Months Insurance [place] - [place] Care Teams Inspector Eyeglass Frames Relationship Specialty Start Date End Date Vadim Young MD [address] [place] [address] Dr Rudy [place] PCP - General 01/10/24
[2025-01-03 11:16] VITALS: BMI 38.3
--- NOTE | 2025-01-04 12:28 | P.CONAN_ITS ---
Documented by User: Karo Santoyo NP 01/04/25 12:28 HPI - Anesthesia Eval Consult details Narrative: 39yo F for Colonoscopy PMFSH Active Problems Active Problems: All Active Problems Breast cancer screening by mammogram (Acute) Screening for colon cancer (Acute) Family history of colon cancer (Acute) Carpal tunnel syndrome (Acute) Hypercholesterolemia (Acute) Screening for cervical cancer (Acute) Adult general medical exam (Acute) Cervical radiculitis (Acute) Laboratory exam ordered as part of routine general medical examination (Acute) Morbid obesity (Acute) Normal physical exam (Acute) Trapezius muscle spasm (Acute) TMJ arthralgia (Acute) Low back pain (Acute) Anxiety (Acute) Normal Pap smear (Acute) Annual physical exam (Acute) Tingling of right upper extremity (Acute) Cervicalgia (Acute) Menorrhagia (Acute) Right shoulder pain (Acute) Contraceptive management (Acute) Major depressive disorder, recurrent, mild (Acute) Metrorrhagia (Acute) Past Medical History Medical History Anal warts (~2012) Normal Pap smear Annual physical exam Low back pain PCOS (polycystic ovarian syndrome) Anxiety Family History Family History Father No problems noted. Mother Hypertension Sister In good health Paternal Grandmother Colon cancer Surgical History Surgical History H/O: hysterectomy H/O arthroscopic knee surgery History of removal of cyst History of appendectomy Social History Social History Housing: Apartment Alcohol intake: current Patient Tobacco Use Status: Former Tobacco user Years Smoked: 15 yrs e-Cigarette/Vaping Use: Currently Using Second Hand Smoke Exposure: No Advance Directives: No Advance Directives Information Provided: Yes service: No Current occupational status: employed Current occupation: [employer] Current occupational exposures/hazards: No Sexual orientation: Straight/Heterosexual Gender identity: Female Cognitive needs: No Hearing needs: No Vision needs: No Meds Allergies Allergy/AdvReac Type Severity Reaction Status Date / Time melon [MELON] Allergy Intermediate RASH Verified 12/24/24 08:55 pertussis vaccine,fluid Allergy Intermediate DIFFICULTY Verified 12/24/24 08:55 [PERTUSSIS VACCINE,FLUID] BREATHING sulfamethoxazole Allergy Intermediate HIVES Verified 12/24/24 08:55 [From BACTRIM] Exam Height,Weight and Vital Signs: Height 5 ft 1 in Weight 91.852 kg Assessment and Plan Assessment Anesthesia Assessment: Chart Reviewed Documented by User: Mary Kate Mendez MD 01/07/25 08:29 [facility] Past Medical History Medical History Anal warts (~2012) Normal Pap smear Annual physical exam Low back pain PCOS (polycystic ovarian syndrome) Anxiety Family History Family History Father No problems noted. Mother Hypertension Sister In good health Paternal Grandmother Colon cancer Family history of problems with anesthesia: No Surgical History Surgical History H/O: hysterectomy H/O arthroscopic knee surgery History of removal of cyst History of appendectomy History of Problems with Anesthesia: No Social History Social History Housing: Apartment Alcohol intake: current Patient Tobacco Use Status: Former Tobacco user Years Smoked: 15 yrs e-Cigarette/Vaping Use: Currently Using Second Hand Smoke Exposure: No Advance Directives: No Advance Directives Information Provided: Yes service: No Current occupational status: employed Current occupation: [employer] Current occupational exposures/hazards: No Sexual orientation: Straight/Heterosexual Gender identity: Female Cognitive needs: No Hearing needs: No Vision needs: No Meds Allergies Allergy/AdvReac Type Severity Reaction Status Date / Time melon [MELON] Allergy Intermediate RASH Verified 12/24/24 08:55 pertussis vaccine,fluid Allergy Intermediate DIFFICULTY Verified 12/24/24 08:55 [PERTUSSIS VACCINE,FLUID] BREATHING sulfamethoxazole Allergy Intermediate HIVES Verified 12/24/24 08:55 [From BACTRIM] Exam Airway Mallampati Class: II TM Dist: >3cm Neck ROM: Full Heart: rrr Lungs: cta Assessment and Plan Assessment Anesthesia Assessment: Anesthesia Plan Discussed Final Anesthetic Review Family History of Problems with Anesthesia: No History of Problems with Anesthesia: No NPO: Yes ASA Class: II Final Preanesthetic Review: No Changes in Pt Med Stat, Meds/Allgs Chart Reviewed, Consent Obtained/Reviewed and Anes Risks/Benef Reviewed Patient Risk: Intermediate (obesity ) Procedure Risk: Low Anesthetic Plan Anesthetic Plan: MAC: Disposition: Standard PACU
[2025-01-07 08:27] VITALS: BP 142/76; PULSE 68; RESP 16; TEMP 36.6; O2SAT 96; BMI 37.4
--- NOTE | 2025-01-07 08:34 | MHC.SHP ---
Pre-Procedural Eval Section A - 24 Hr Update-Section A only Date of Service: 01/07/25 The patient is an INPATIENT: No The patient has been examined within 24 hours of the surgical procedure. The History & Physical has been completed within 30 days and I have reviewed it.: No Section B - Complete if H&P > 30 days Chief Complaint: Colon cancer screening, family history of colon ca Relevant Family History (Specify if Yes): Yes Relevant Social History: Tobacco Use (Former smoker) Present Medications: see Short Stay Collaborative assessment Medical History: Significant History (Anal warts (~2012) Normal Pap smear Annual physical exam Low back pain PCOS (polycystic ovarian syndrome) Anxiety) History of Previous Operations: Relevant previous surgery/procedure and date(s) (H/O: hysterectomy H/O arthroscopic knee surgery History of removal of cyst History of appendectomy) Allergies: Allergies Allergy/AdvReac Type Severity Reaction Status Date / Time melon [MELON] Allergy Intermediate RASH Verified 12/24/24 08:55 pertussis vaccine,fluid Allergy Intermediate DIFFICULTY Verified 12/24/24 08:55 [PERTUSSIS VACCINE,FLUID] BREATHING sulfamethoxazole Allergy Intermediate HIVES Verified 12/24/24 08:55 [From BACTRIM] Review of Systems Sugical H&P ROS: Negative: Constitution, Cardiovascular, Respiratory and Gastrointestinal Exam Surgical H&P Exam: Normal: Heart, Normal: Lungs, Normal: Extremities and Normal: Abdomen Plan Diagnosis/Plan: Unchanged I have reviewed the history and physical and performed a pertinent physical examination on my patient. No changes have occurred unless specified. Time Spent With Patient Time: Total time managing care of this patient today ____ minutes.
[2025-01-07] MEDS: Lactated Ringers 1,000 ML 100 ML IVCONT (08:39)
[2025-01-07 09:12] VITALS: BP 113/69; PULSE 77; RESP 20; TEMP 36.1; O2SAT 95
--- NOTE | 2025-01-07 09:12 | HO.OPN-COLON ---
Colonoscopy Operative Note Operative Note Date of Service: 01/07/25 Narrative: COLONOSCOPY TILL CECUM WITH BIOPSIES AND SNARE POLYPECTOMY Pre-op diagnosis: Colon cancer screening (First colon), Paternal grandmother diagnosed with colorectal cancer before age 50.. Post-op diagnosis:? Colon polyps, Diverticulosis Endoscopist:? Remy Ball MD Anesthesia:?MAC Consent: Indications for the procedure and potential complications of bleeding, perforation, reaction to medications and missed diagnosis were discussed with the patient and informed consent was obtained. Instrument: Olympus PCF H 190 L variable stiffness pediatric colonoscope Monitoring: Vital signs and clinical assessment, intermittent blood pressure monitoring, continuous EKG monitoring, Pulse oximetry and Carbon Dioxide monitoring were done throughout the procedure. Please see anesthesia flowsheet. Colon withdrawl time was 14 minutes. Procedure: The patient was placed in the left lateral decubitis position and pre-procedure medications were administered. After a digital rectal examination of the ano-rectum, the video colonoscope was inserted into the rectum and advanced through the colon to the cecum. The colonoscope was slowly withdrawn in a retrograde panoramic fashion and the colon mucosa was carefully examined including a retroflexed view of the rectum. Findings and interventions are described below. Procedure Difficulty: without difficulty Findings: Terminal Ileum: Not evaluated Cecum: Normal Ascending Colon: Normal Transverse Colon: Normal Descending Colon: Normal Sigmoid Colon: A 4-5 mm sessile polyp - Removed with a cold snare. Moderate diverticulosis Rectum: A 2-3 mm sessile polyp - removed with a cold biopsy Ano-rectum: Normal Colon preparation: Excellent after some irrigation. [place] Bowel Preparation Scale Right colon; 3 Transverse colon: 3 Left colon; 3 (0 = Unprepared colon segment with mucosa not seen due to solid stool that cannot be cleared. 1 = Portion of mucosa of the colon segment seen, but other areas of the colon segment not well seen due to staining, residual stool and/or opaque liquid. 2 = Minor amount of residual staining, small fragments of stool and/or opaque liquid, but mucosa of colon segment seen well. 3 = Entire mucosa of colon segment seen well with no residual staining, small fragments of stool or opaque liquid) Impression and Post Procedure Diagnosis: Colonoscopy Findings: Two small polyps were removed Mild diverticulosis seen in the sigmoid colon Plan: I will send a letter with biopsy results. Repeat Colonoscopy in 5 years if polyps are adenomatous and due to positive family history of colon cancer. Above findings were reviewed with the patient and relevant handouts were given and the discharge area.
[2025-01-07 09:27] VITALS: BP 120/67; PULSE 71; RESP 16; O2SAT 99
[2025-01-07 09:42] VITALS: BP 126/66; PULSE 56; RESP 16; TEMP 36.2; O2SAT 98
== END 2025-01-07 10:07 | disposition home or self-care (01) ==
PROVIDERS: PCP Family Medicine; Visit Provider Internal Medicine Gastroenterology
PROC: 0DJD8ZZ Inspection of Lower Intestinal Tract, Via Natural or Artificial Opening Endoscopic (ICD-10-PCS; CPT 45378; principal; 2025-01-07 09:30)
DX: Z12.11 Encounter for screening for malignant neoplasm of colon (principal); D12.5 Benign neoplasm of sigmoid colon; K62.1 Rectal polyp; K57.30 Diverticulosis of large intestine without perforation or abscess without bleeding; Z88.2 Allergy status to sulfonamides; Z88.7 Allergy status to serum and vaccine; Z91.018 Allergy to other foods; E66.9 Obesity, unspecified; Z68.39 Body mass index [BMI] 39.0-39.9, adult; A63.0 Anogenital (venereal) warts; E28.2 Polycystic ovarian syndrome; M54.50 Low back pain, unspecified; F32.A Depression, unspecified; F41.9 Anxiety disorder, unspecified; Z90.710 Acquired absence of both cervix and uterus; Z98.890 Other specified postprocedural states; Z87.891 Personal history of nicotine dependence
CPT/HCPCS: 45385; 45380; 88305; J2003; J2250; J2704

== ENCOUNTER → 2025-01-07 07:47 | Outpatient (BNV) | payer OTHER, SELFPAY | PROVIDERS: PCP Family Medicine; Visit Provider Internal Medicine Gastroenterology | DX: Z12.11 Encounter for screening for malignant neoplasm of colon (principal); K63.5 Polyp of colon; K57.90 Diverticulosis of intestine, part unspecified, without perforation or abscess without bleeding | CPT/HCPCS: 45380; 45385 ==

== ENCOUNTER 2025-06-17 11:20 | Outpatient (REF) | payer OTHER, SELFPAY ==
--- OUTSIDE RECORDS SUMMARY | 2025-06-17 14:56 | XMS_ITS | Clinical Summary ---
Author Organization [facility] Address [address] [place] [address] Phone Care Team Providers Care Mix Technician Name Role Phone Vadim Young MD Primary Care Provider [phone] Allergies Active Allergy Reactions Criticality Noted Date [...] Encounters Date Type Department Care Team Description 04/22/2025 3:57 PM EDT - 04/22/2025 10:53 PM EDT Emergency [facility] Emergency [address] [place] [address] Andreea Carrera MD Pancolitis (CMS/[facility] V24, CMS/[facility] V28) (Primary Dx); Vomiting and diarrhea; Abdominal pain, unspecified abdominal location; Dehydration Discharge Disposition: Home or Self Care from Last 3 Months Surgical History Surgery Date Site/Laterality Comments WRIST MASS EXCISION 07/25/2000 - 07/24/2001 Left Medical History Medical History Date Comments Migraine Family History Medical History Relation Name Comments [...] Sign Reading Time Taken Comments Blood Pressure 146/83 04/22/2025 9:24 PM EDT Pulse 87 04/22/2025 9:24 PM EDT Temperature 36.6 C (97.8 F) 04/22/2025 9:24 PM EDT Respiratory Rate 18 04/22/2025 9:24 PM EDT Oxygen Saturation 99% 04/22/2025 9:24 PM EDT Inhaled Oxygen Concentration - - Weight 90.7 [...] 5 Years) and At-Risk Patients (6 to 49 Years) (1 of 2 - PCV) 2003 Cervical Cancer Screening: P ap Smear 2005 HPV Vaccines (1 - 3-dose SCD M series) 2011 COVID-19 Vaccine (3 - Pfizer risk series) 12/11/2020 11/13/2020, 10/23/2020 DTaP,Tdap,and Td Vaccines (2 - Td or Tdap) 11/03/2022 11/03/2012 Cholesterol Screening (Lipid Panel) 05/01/2024 HIV Screening 05/01/2024 Hepatitis C Screening 05/01/2024 Social Influencers of Health Screening 05/01/2024 Depression Screening 07/25/2024 Influenza Vaccine (#1) 2025 RSV Immunization Adult Patients (1 - 1-dose 75+ series) 2059 HIB Vaccines Aged Out No longer eligi [...] Procedure Name Priority Date/Time Associated Diagnosis Comments LACTATE STAT 04/22/2025 9:[address] ABDOMEN PELVIS W CONTRAST STAT 04/22/2025 5:22 PM EDT LACTATE STAT 04/22/2025 4:39 PM EDT POC , URINE DIAGNOSTIC STAT 04/22/2025 4:19 PM EDT URINALYSIS WITH REFLEX MICROSCOPIC STAT 04/22/2025 4:15 PM EDT URINALYSIS WITH REFLEX MICROSCOPIC STAT 04/22/2025 4:15 PM EDT MAGNESIUM STAT Add-on 04/22/2025 3:25 PM EDT CBC WITH AUTO DIFFERENTIAL STAT 04/22/2025 3:25 PM EDT LIPASE STAT 04/22/2025 3:25 PM EDT COMPREHENSIVE METABOLIC PANEL STAT 04/22/2025 3:25 PM EDT CBC AND DIFFERENTIAL STAT 04/22/2025 3:25 PM EDT from Last 3 Months Results * Lactate (04/22/2025 9:16 PM EDT) Only the most recent of2 resultswithin the time period is included. Lactate 1.4 0.4 - 2.0 mmol/L LAB CHEMISTRY METHOD 04/22/2025 9:58 PM EDT [facility] Blood Venous blood specimen / Unknown Venipuncture / Unknown 04/22/2025 9:16 PM EDT 04/22/2025 9:23 PM EDT us Andreea Carrera MD LAB BLOOD ORDERABLES Final Resul t [facility] [address] [place] [address], [place] [phone] * CT Abdomen Pelvis w Contrast (04/22/2025 5:22 PM EDT) Anatomical Region Laterality Modality Body Computed Tomogra phy 04/22/2025 5:54 PM EDT Impressions 04/22/2025 5:54 PM EDT There is evidence of rausch colitis. Consider infectious colitis or inflammatory bowel disease. This document has been electronically signed by: Arianna Richard MD on 04/22/2025 17:54:03 Narrative 04/22/2025 5:54 PM EDT INDICATION: L sided pain, RUQ tenderness, vomiting and diarrhea CT abdomen and pelvis with contrast Comparison: None provided Findings: No consolidation or effusion. Unremarkable gallbladder and solid organs. No urolithiasis. There is mild thickening of the wall of the colon extending throughout its length. There is fluid throughout the colon compatible with a diarrheal illness. There is no small bowel dilatation. Poorly distended urinary bladder. Prior hysterectomy. Small corpus luteal cyst within the left ovary. The appendix is not definitively seen. There are no secondary findings to suggest appendicitis. The bones are intact. Procedure Note Anniet-Arianna Richard MD - 04/22/2025 INDICATION: L sided pain, RUQ tenderness, vomiting and diarrhea CT abdomen and pelvis with contrast Comparison: None provided Findings: No consolidation or effusion. Unremarkable gallbladder and solid organs. No urolithiasis. There is mild thickening of the wall of the colon extending throughoutits length. There is fluid throughout the colon compatible with a diarrheal illness. There is no small bowel dilatation. Poorly distended urinary bladder. Prior hysterectomy. Small corpusluteal cyst within the left ovary. The appendix is not definitively seen. There are no secondary findings to suggest appendicitis. The bones are intact. IMPRESSION: There is evidence of rausch colitis. Consider infectious colitis or inflammatory bowel disease. This document has been electronically signed by: Arianna Richard MD on 04/22/2025 17:54:03 Andreea Carrera MD IMG CT PROCEDURES Final Result * POC , urine manually resulted (04/22/2025 4:19 PM EDT) Pathologist [facility] HCG, Ur POC Comment:negative POC hCG Int QC Pass? Comment:yes EXPIRATION DATE POC Comment:2026-09-11 LOT NUMBER POC Comment:[id number] Urine Urine specimen obtained by clean catch procedure / Unknown 04/22/2025 4:19 PM EDT Andreea Carrera MD POINT OF CARE TEST ENTER/EDIT OR DERABLES Final Result * (ABNORMAL) Urinalysis with reflex microscopic (04/22/2025 4:15 PM EDT) [facility] Specific [place] Urine 1.029 1.003 - 1.030 LAB URINALYSIS - AUTOMATED METHOD 04/22/2025 5:26 PM [facility] pH, Urine 5.5 5.0 - 8.0 pH LAB URINALYSIS - AUTOMATED METHOD 04/22/2025 5:26 PM [facility] Leukocytes, Urine Trace(A) Negative LAB URINALYSIS - AUTOMATED METHOD 04/22/2025 5:26 PM [facility] Nitrite, Urine Negative Negative LAB URINALYSIS - AUTOMATED METHOD 04/22/2025 5:26 PM [facility] Protein, Urine 100(A) <=Trace mg/dL LAB URINALYSIS - AUTOMATED METHOD 04/22/2025 5:26 PM [facility] Glucose, Urine Negative Negative mg/dL LAB URINALYSIS - AUTOMATED METHOD 04/22/2025 5:26 PM [facility] Ketones, Urine 40(A) Negative mg/dL LAB URINALYSIS - AUTOMATED METHOD 04/22/2025 5:26 PM [facility] Urobilinogen , Urine 1.0 0.2 - 1.0 mg/dL LAB URINALYSIS - AUTOMATED METHOD 04/22/2025 5:26 PM [facility] Bilirubin, Urine Moderate(A) Negative LAB URINALYSIS - AUTOMATED METHOD 04/22/2025 5:26 PM [facility] Blood, Urine Negative Negative LAB URINALYSIS - AUTOMATED METHOD 04/22/2025 5:26 PM [facility] RBC, Urine 4.0 0 - 4 /HPF LAB URINALYSIS - AUTOMATED METHOD 04/22/2025 5:26 PM [facility] WBC, Urine 10.0(H) 0 - 4 /HPF LAB URINALYSIS - AUTOMATED METHOD 04/22/2025 5:26 PM [facility] Squamous Epithelial, Urine >100(H) 0 - 60 /LPF LAB URINALYSIS - AUTOMATED METHOD 04/22/2025 5:26 PM [facility] Crystals, Urine Light Amorphous Urate crystals. /LPF 04/22/2025 5:26 PM [facility] Bacteria, Urine Negative Negative /HPF LAB URINALYSIS - AUTOMATED METHOD 04/22/2025 5:26 PM [facility] Hyaline Casts, Urine 3.0 0 - 3 /LPF LAB URINALYSIS - AUTOMATED METHOD 04/22/2025 5:26 PM [facility] Other Casts, Urine Rare Fine Granular casts. /LPF 04/22/2025 5:26 PM [facility] Mucus, Urine Large None /HPF 04/22/2025 5:26 PM [facility] Urine Urine specimen obtained by clean catch procedure / Unknown Non-blood Collection / Unknown 04/22/2025 4:15 PM EDT 04/22/2025 4:30 PM EDT us Andreea Carrera MD LAB URINE ORDERABLES Final Resul t [facility] [address] [place] [address], [place] [phone] * (ABNORMAL) CBC auto differential (04/22/2025 3:25 PM EDT) WBC 12.0(H) 4.8 - 10.8 K/mcL LAB HEMETOLOGY METHOD 04/22/2025 3:40 PM EDT [facility] RBC 5.30(H) 3.80 - 4.80 M/mcL LAB HEMETOLOGY METHOD 04/22/2025 3:40 PM EDT [facility] Hemoglobin 15.6 11.5 - 16.0 g/dL LAB HEMETOLOGY METHOD 04/22/2025 3:40 PM EDT [facility] Hematocrit 45.4 35.0 - 47.0 % LAB HEMETOLOGY METHOD 04/22/2025 3:40 PM EDT [facility] MCV 85.0 79.0 - 98.0 FL LAB HEMETOLOGY METHOD 04/22/2025 3:40 PM EDT [facility] MCH 29.2 27.0 - 32.0 pcg LAB HEMETOLOGY METHOD 04/22/2025 3:40 PM EDT [facility] MCHC 34.4 32.0 - 37.0 g/dL LAB HEMETOLOGY METHOD 04/22/2025 3:40 PM EDT [facility] RDW 12.4 11.0 - 15.0 % LAB HEMETOLOGY METHOD 04/22/2025 3:40 PM EDT [facility] Platelets 271 130 - 400 K/mcL LAB HEMETOLOGY METHOD 04/22/2025 3:40 PM EDT [facility] MPV 9.7 7.0 - 11.0 FL LAB HEMETOLOGY METHOD 04/22/2025 3:40 PM EDT [facility] NRBC 0.0 <1.0 % LAB HEMETOLOGY METHOD 04/22/2025 3:40 PM EDT [facility] NRBC Absolute 0.00 <0.10 K/mcL LAB HEMETOLOGY METHOD 04/22/2025 3:40 PM EDT [facility] Neutrophils Relative 73.9 % LAB HEMETOLOGY METHOD 04/22/2025 3:40 PM EDT [facility] Lymphocytes Relative 16.4 % LAB [facility] Monocytes Relative 8.7 % LAB HEMETOLOGY METHOD 04/22/2025 3:40 PM EDT [facility] Eosinophils Relative 0.2 % LAB [facility]OLOG[facility] Basophils Relative 0.3 % LAB HEMETOLOGY METHOD 04/22/2025 3:40 PM [facility] Immature Granulocytes Relative 0.5 % LAB HEMETOLOGY METHOD 04/22/2025 3:40 PM EDT [facility] Neutrophils Absolute 8.89(H) 1.50 - 7.00 K/mcL LAB HEMETOLOGY METHOD 04/22/2025 3:40 PM EDT [facility] Lymphocytes Absolute 1.97 1.00 - 5.00 K/mcL LAB HEMETOLOGY METHOD 04/22/2025 3:40 PM EDT [facility] Monocytes Absolute 1.05(H) 0.20 - 1.00 K/mcL LAB HEMETOLOGY METHOD 04/22/2025 3:40 PM EDT [facility] Eosinophils Absolute 0.02 0.00 - 0.50 K/[facility] LAB HEMETOLOGY METHOD 04/22/2025 3:40 PM EDT [facility] Basophils Absolute 0.04 0.00 - 0.20 K/[facility] LAB HEMETOLOGY METHOD 04/22/2025 3:40 PM EDT [facility] Immature Granulocytes Absolute 0.06(H) 0.00 - 0.03 K/[facility] HEMETOLOGY METHOD 04/22/2025 3:40 PM EDT [facility] Blood Venous blood specimen / Unknown Venipuncture / Unknown 04/22/2025 3:25 PM EDT 04/22/2025 3:31 PM EDT us Andreea Carrera MD LAB BLOOD ORDERABLES Final Resul t Performing Organization Address [facility]/ZIP Co de Phone Number [facility] [address] [place] [address], [place] [phone] * Magnesium (04/22/2025 3:25 PM EDT) Magnesium 1.9 1.9 - 2.6 mg/dL LAB CHEMISTRY METHOD 04/22/2025 4:19 PM EDT [facility] Blood Venous blood specimen / Unknown Venipuncture / Unknown 04/22/2025 3:25 PM EDT 04/22/2025 3:31 PM EDT us Andreea Carrera MD LAB BLOOD ORDERABLES Final Resul t Performing Organization Address City/[facility]/ZIP Co de Phone Number [facility] [address] [place] [address], [place] [phone] * Lipase (04/22/2025 3:25 PM EDT) Lipase 35 13 - 75 unit/L LAB CHEMISTRY METHOD 04/22/2025 4:13 PM EDT [facility] Blood Venous blood specimen / Unknown Venipuncture / Unknown 04/22/2025 3:25 PM EDT 04/22/2025 3:31 PM EDT us Andreea Carrera MD LAB BLOOD ORDERABLES Final Resul t [facility] [address] [place] [address], [place] [phone] * (ABNORMAL) Comprehensive metabolic panel (04/22/2025 3:25 PM EDT) Sodium 135 133 - 145 mmol/L LAB CHEMISTRY METHOD 04/22/2025 4:13 PM EDT [facility] Potassium 3.2(L) 3.5 - 5.5 mmol/L LAB CHEMISTRY METHOD 04/22/2025 4:13 PM [facility] Chloride 103 96 - 110 mmol/L LAB CHEMISTRY METHOD 04/22/2025 4:13 PM [facility] CO2 19(L) 21 - 32 mmol/L LAB CHEMISTRY METHOD 04/22/2025 4:13 PM [facility] Anion Gap 13(H) 3 - 11 LAB CHEMISTRY METHOD 04/22/2025 4:13 PM [facility] Glucose 94 70 - 100 mg/dL LAB CHEMISTRY METHOD 04/22/2025 4:13 PM [facility] BUN 13 5 - 25 mg/dL LAB CHEMISTRY METHOD 04/22/2025 4:13 PM T [facility] Creatinine 1.06 0.50 - 1.10 mg/dL LAB CHEMISTRY METHOD 04/22/2025 4:13 PM [facility] eGFR 68 >=60 mL/min/1. 73m2 LAB CHEMISTRY METHOD 04/22/2025 4:13 PM [facility] Comment:Calculation based on the Chronic Kidney Disease Epidemiology Collaboration (CKD-EPI) equation refit without adjustment for race. BUN/Creatinine Ratio 12.3 LAB CHEMISTRY METHOD 04/22/2025 4:13 PM EDT [facility] Calcium 9.5 8.5 - 10.5 mg/dL LAB CHEMISTRY METHOD 04/22/2025 4:13 PM [facility] AST (SGOT) 15 10 - 42 unit/L LAB CHEMISTRY METHOD 04/22/2025 4:13 PM [facility] ALT (SGPT) 26 10 - 60 unit/L LAB CHEMISTRY METHOD 04/22/2025 4:13 PM T [facility] Alkaline Phosphatase 77 42 - 121 unit/L LAB CHEMISTRY METHOD 04/22/2025 4:13 PM [facility] Total Protein 7.7 6.0 - 8.0 g/dL LAB CHEMISTRY METHOD 04/22/2025 4:13 PM [facility] Albumin 3.8 3.2 - 5.0 g/dL LAB CHEMISTRY METHOD 04/22/2025 4:13 PM [facility] Total Bilirubin 0.6 0.0 - 1.4 mg/dL LAB CHEMISTRY METHOD 04/22/2025 4:13 PM [facility] Blood Venous blood specimen / Unknown Venipuncture / Unknown 04/22/2025 3:25 PM EDT 04/22/2025 3:31 PM EDT us Andreea Carrera MD LAB BLOOD ORDERABLES Final Resul t [facility] [address] [place] [address], from Last 3 Months Insurance [facility] Care Teams Mix Technician Relationship Specialty Start Date End Date Vadim Young MD [address] [place] [address] Dr Wylie Sal[place]anca [place] PCP - General 01/10/24
[2025-06-17 16:44] LABS: Alanine Aminotransferase 20 U/L (0-31); Albumin Level 4.1 g/dL (3.5-5.0); Alkaline Phosphatase 82 U/L (39-117); Anion Gap 10 (12-20); Aspartate Amino Transferase 27 U/L (5-31); Blood Urea Nitrogen 14 mg/dL (9-16); Calcium 9.6 mg/dL (8.4-10.2); Carbon Dioxide 27 mmol/L (22-29); Chloride 106 mmol/L (96-108); Cholesterol 217 mg/dL (<200); Estimated Glomerular Filt Rate > 60; HDL Cholesterol 55 mg/dL (>40); Potassium 4.0 mmol/L (3.3-5.1); Sodium 139 mmol/L (135-145); Total Protein 7.4 g/dL (6.5-8.0); Triglycerides 79 mg/dL (<150)
== END 2025-06-17 11:21 | disposition home or self-care (01) ==
LOC: HO.WFDLDS 11:20
PROVIDERS: Visit Provider Family Medicine
DX: Z00.00 Encounter for general adult medical examination without abnormal findings (principal); E78.00 Pure hypercholesterolemia, unspecified
CPT/HCPCS: 36415; 80053; 80061

== ENCOUNTER 2025-06-28 09:15 | Outpatient (AMB) | payer OTHER, SELFPAY ==
--- NOTE | 2025-06-28 09:18 | MHC.PC.OV ---
Vital Signs 06/28/25 09:23 Height 5 ft 1.5 in Weight 192 lb 2 oz BMI 35.7 BP 112/80 Blood Pressure Location Rt brachial Position Sitting Respiration 16 Pulse 74 Pulse Source Pulse Oximeter Temp 96.8 F Temp Source Temporal Artery Scan Pulse Oximetry (%) 98 Oxygen Delivery Method Room Air Intake Visit Reasons: f/u lipids Intake Note: Jill presents in the office today to follow up to her lipids. 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 Is last menstrual period known: No (Hysterectomy) Post menopausal: Yes Patient : No Allergies melon (MELON) Allergy (Intermediate, Verified 06/28/25 09:21) RASH pertussis vaccine,fluid (PERTUSSIS VACCINE,FLUID) Allergy (Intermediate, Verified 06/28/25 09:21) DIFFICULTY BREATHING sulfamethoxazole (From BACTRIM) Allergy (Intermediate, Verified 06/28/25 09:21) HIVES Medication List - Last Reconciled 06/28/25 by Vadim Young MD cyclobenzaprine 10 mg PO TID PRN 30 days sertraline 50 mg PO DAILY Tobacco use date assessed: 06/28/25 Dental Screening Dental Screen Date: 06/28/25 Did you have a dental visit in the last 12 months?: Yes Did you have a dental problem in the last 6 months where you did not have access to dental care?: No Was dental information given to patient?: Patient has dentist HPI f/u lipids HPI Details 40 y/o female presents to f/u labs. Labs drawn 06/17/25. Reviewed labs with pt. Triglycerides 79. TC 217. LDL 147. HDL 55. LDL level worsened despite losing weight. HPI Comments History of Present Illness Details Documentation assistance for Vadim Young MD, was provided by Gerry Spear,? Butter Maker on 06/28/2025 at 9:42 AM EST. I, Dr. Young, have read, observed, and verified documentation. ?? PFSH Medical History Anal warts (~2012) Normal Pap smear Annual physical exam Low back pain PCOS (polycystic ovarian syndrome) Anxiety Surgical History H/O: hysterectomy H/O arthroscopic knee surgery History of removal of cyst History of appendectomy Family History Father No problems noted. Mother Hypertension Sister In good health Paternal Grandmother Colon cancer Social History (Updated 06/28/25 @ 09:23 by Anette Martinez CMA) Housing: Apartment Are you a primary reservoir caretaker to a significant other at home: No Do you presently have visiting nurse or other home services: No Alcohol intake: current Alcohol intake frequency: holidays/special occasions only Patient Tobacco Use Status: Former Tobacco user Years Smoked: 15 yrs e-Cigarette/Vaping Use: Currently Using Second Hand Smoke Exposure: No Substance Use Type: Marijuana service: No Current occupational status: employed Current occupation: [employer] Current occupational exposures/hazards: No Sexual orientation: Straight/Heterosexual Gender identity: Female Cognitive needs: No Hearing needs: No Vision needs: No Questionnaire Thrive Questionnaire Date Thrive assessed: 12/17/24 I am a: Patient What is your living situation today?: I have a steady place to live Within the past 12 months, did the food you bought not last and you didn't have the money to get more?: Never true Within the past 12 months, did you worry whether your food would run out before you got money to buy more?: Never true Do you have trouble paying for medicines?: No Do you have trouble getting transportation to medical appointments?: No Do you have trouble paying your heating and electricity bill?: No Do you have trouble taking care of your child, family member or friend?: No Do you have trouble with day-to-day activities such as bathing, preparing meals, shopping, managing finances, etc.?: No Are you currently unemployed and looking for a job?: No Are you interested in more education?: No Please select the resources that you would like help with: None Currently or been in a relationship where the following occur: No concerns reported THRIVE Score: 0 LUCY-7 AMB Questionnaire LUCY-7 Date LUCY - 7 assessed: 12/24/24 Source: Developed by Drs. Tim Kee, Ronel Frederick, Joseluis Naranjo and colleagues, with an educational vilma from [employer]. Review of Systems Const Denies chills, Denies fatigue, Denies fever(s), Denies headache(s) and Denies weakness ENT Denies dizziness and Denies headache(s) Card Denies dyspnea Resp Denies cough, Denies dyspnea, Denies wheezing and Denies other (shortness of breath) Musc Denies numbness and Denies tingling Neuro Denies dizziness, Denies headache(s), Denies numbness, Denies tingling and Denies weakness Psych Denies anxiety and Denies depression Endo Denies fatigue Aller/Immun Denies wheezing Physical exam (Primary Care) Vital Signs: Last Vital Signs Temp 96.8 F 06/28/25 09:23 Pulse 74 06/28/25 09:23 Resp 16 06/28/25 09:23 BP 112/80 06/28/25 09:23 Pulse Ox 98 06/28/25 09:23 Oxygen Delivery Method Room Air 06/28/25 09:23 BMI result Body Mass Index 35.7 Tobacco/Smoking Status: Tobacco use Status Tobacco use date assessed 06/28/25 06/28/25 09:26 Patient Tobacco Use Status Former Tobacco user 06/28/25 09:23 e-Cigarette/Vaping Use Currently Using 06/28/25 09:23 Thrive Assessment: Date of Thrive Assessment Date Thrive assessed 12/17/24 06/28/25 09:20 Currently or been in a relationship where the following occur: No concerns reported Const General: well developed; No acute distress Nutritional Appearance: well nourished Orientation/consciousness: patient oriented x3 HENMT Head: Yes normocephalic and Yes atraumatic Eyes General: appearance normal, both eyes and all related structures Pupils: Equal, round and reactive pupils present EOM: EOMs intact bilaterally Resp Effort & Inspection: normal respiratory effort Neuro General: patient oriented x3 and gait normal Cranial nerves: Yes Equal, round and reactive pupils present Psych Affect: normal affect Coding Level of Care Code Est Pt Level 3 (36416) Diagnoses Hypercholesterolemia E78.00 Assessment & Plan Assessment & Plan (1) Hypercholesterolemia: Code(s): E78.00 - Pure hypercholesterolemia, unspecified Category: Medical Plan: LDL cholesterol has not improved and in fact has climbed We will start atorvastatin 20 mg daily. Will recheck lipids in few months. Encouraged diet low in saturated fats and cholesterol. Encouraged exercise and ongoing weight loss Orders: Orders Comprehensive [place]. Panel Fast Today Z00.00 - Encounter for general adult medical examination without abnormal findings Lipid Panel Today E78.00 - Pure hypercholesterolemia, unspecified, Z00.00 - Encounter for general adult medical examination without abnormal findings Medications: New atorvastatin (Lipitor) 20 mg PO BEDTIME 90 tabs 3RF 90 days
[2025-06-28 09:23] VITALS: BP 112/80; PULSE 74; RESP 16; TEMP 36; O2SAT 98; BMI 35.7
--- OUTSIDE RECORDS SUMMARY | 2025-06-28 09:58 | XMS_ITS | Clinical Summary ---
Author Organization [address] [facility] Address [address] [place] [address] Phone Care Team Providers Care Student Activities Director Name Role Phone Vadim Young MD Primary Care Provider [phone] Allergies Active Allergy Reactions Criticality Noted Date [...] EDT - 04/22/2025 10:53 PM EDT Emergency [facility] Emergency [address] [place] [address] Andreea Carrera MD Pancolitis (CMS/[facility] V24, CMS/[facility] V28) (Primary Dx); Vomiting and diarrhea; Abdominal [...] LAB CHEMISTRY METHOD 04/22/2025 9:58 PM EDT [facility] Blood Venous blood specimen / Unknown Venipuncture / Unknown 04/22/2025 9:16 PM EDT 04/22/2025 9:23 PM EDT us Andreea Carrera MD LAB BLOOD ORDERABLES Final Resul t [facility] ([facility]) [facility] [address] [place] [address], [place] [phone] * CT Abdomen Pelvis w Contrast (04/22/2025 [...] manually resulted (04/22/2025 4:19 PM EDT) Pathologist [facility] [place] HCG, Ur POC Comment:negative POC hCG Int QC Pass? Comment:yes EXPIRATION DATE POC Comment:2026-09-11 LOT NUMBER POC Comment:[id number] Urine Urine specimen obtained by clean catch procedure / Unknown 04/22/2025 4:19 PM EDT Andreea Carrera MD POINT OF CARE TEST ENTER/EDIT OR DERABLES Final Result * (ABNORMAL) Urinalysis with reflex microscopic (04/22/2025 4:15 PM EDT) [facility] Specific Ward Urine 1.029 1.003 - 1.030 LAB URINALYSIS - AUTOMATED METHOD 04/22/2025 5:26 PM [facility] pH, Urine 5.5 5.0 - 8.0 pH LAB URINALYSIS - AUTOMATED METHOD 04/22/2025 5:26 PM [facility] Leukocytes, Urine Trace(A) Negative LAB URINALYSIS - AUTOMATED METHOD 04/22/2025 5:26 PM [facility] Nitrite, Urine Negative Negative LAB URINALYSIS - AUTOMATED METHOD 04/22/2025 5:26 PM [facility] Protein, Urine 100(A) <=Trace mg/dL LAB URINALYSIS - AUTOMATED METHOD 04/22/2025 5:26 PM [facility] Glucose, Urine Negative Negative mg/dL LAB URINALYSIS - AUTOMATED METHOD 04/22/2025 5:26 PM [facility] Ketones, Urine 40(A) Negative mg/dL LAB URINALYSIS - AUTOMATED METHOD 04/22/2025 5:26 PM [facility] Urobilinogen , Urine 1.0 0.2 - 1.0 mg/dL LAB URINALYSIS - AUTOMATED METHOD 04/22/2025 5:26 PM [facility] Bilirubin, Urine Moderate(A) Negative LAB URINALYSIS - AUTOMATED METHOD 04/22/2025 5:26 PM [facility] Blood, Urine Negative Negative LAB URINALYSIS - AUTOMATED METHOD 04/22/2025 5:26 PM [facility] RBC, Urine 4.0 0 - 4 /HPF LAB URINALYSIS - AUTOMATED METHOD 04/22/2025 5:26 PM [facility] WBC, Urine 10.0(H) 0 - 4 /HPF LAB URINALYSIS - AUTOMATED METHOD 04/22/2025 5:26 PM [facility] Squamous Epithelial, Urine >100(H) 0 - 60 /LPF LAB URINALYSIS - AUTOMATED METHOD 04/22/2025 5:26 PM [facility] Crystals, Urine Light Amorphous Urate crystals. /LPF 04/22/2025 5:26 PM [facility] Bacteria, Urine Negative Negative /HPF LAB URINALYSIS - AUTOMATED METHOD 04/22/2025 5:26 PM [facility] Hyaline Casts, Urine 3.0 0 - 3 /LPF LAB URINALYSIS - AUTOMATED METHOD 04/22/2025 5:26 PM [facility] Other Casts, Urine Rare Fine Granular casts. /LPF 04/22/2025 5:26 PM [facility] Mucus, Urine Large None /HPF 04/22/2025 5:26 PM [facility] Urine Urine specimen obtained by clean catch procedure / Unknown Non-blood Collection / Unknown 04/22/2025 4:15 PM EDT 04/22/2025 4:30 PM EDT us Andreea Carrera MD LAB URINE ORDERABLES Final Resul t [facility] [address] [place] [address], [place] [phone] * (ABNORMAL) CBC auto differential (04/22/2025 3:25 PM EDT) WBC 12.0(H) 4.8 - 10.8 K/mcL LAB HEMETOLOGY METHOD 04/22/2025 3:40 PM EDT [facility] RBC 5.30(H) 3.80 - 4.80 M/mcL LAB HEMETOLOGY METHOD 04/22/2025 3:40 PM EDT [facility] Hemoglobin 15.6 11.5 - 16.0 g/dL LAB HEMETOLOGY METHOD 04/22/2025 3:40 PM EDT [facility] Hematocrit 45.4 35.0 - 47.0 % LAB HEMETOLOGY METHOD 04/22/2025 3:40 PM EDT [facility] MCV 85.0 79.0 - 98.0 FL LAB HEMETOLOGY METHOD 04/22/2025 3:40 PM EDT [facility] MCH 29.2 27.0 - 32.0 pcg LAB HEMETOLOGY METHOD 04/22/2025 3:40 PM EDT [facility] MCHC 34.4 32.0 - 37.0 g/dL LAB HEMETOLOGY METHOD 04/22/2025 3:40 PM EDT [facility] RDW 12.4 11.0 - 15.0 % LAB HEMETOLOGY METHOD 04/22/2025 3:40 PM EDT [facility] Platelets 271 130 - 400 K/mcL LAB HEMETOLOGY METHOD 04/22/2025 3:40 PM EDT [facility] MPV 9.7 7.0 - 11.0 FL LAB HEMETOLOGY METHOD 04/22/2025 3:40 PM EDT [facility] NRBC 0.0 <1.0 % LAB HEMETOLOGY METHOD 04/22/2025 3:40 PM EDT [facility] NRBC Absolute 0.00 <0.10 K/mcL LAB HEMETOLOGY METHOD 04/22/2025 3:40 PM EDT [facility] Neutrophils Relative 73.9 % LAB HEMETOLOGY METHOD 04/22/2025 3:40 PM EDT [facility] Lymphocytes Relative 16.4 % LAB [facility] Monocytes Relative 8.7 % LAB HEMETOLOGY METHOD 04/22/2025 3:40 PM EDT [facility] Eosinophils Relative 0.2 % LAB [facility] Basophils Relative 0.3 % LAB HEMETOLOGY METHOD 04/22/2025 3:40 PM [facility] Immature Granulocytes Relative 0.5 % LAB HEMETOLOGY METHOD 04/22/2025 3:40 PM EDT [facility] Neutrophils Absolute 8.89(H) 1.50 - 7.00 K/mcL LAB HEMETOLOGY METHOD 04/22/2025 3:40 PM EDT [facility] Lymphocytes Absolute 1.97 1.00 - 5.00 K/mcL LAB HEMETOLOGY METHOD 04/22/2025 3:40 PM EDT [facility] Monocytes Absolute 1.05(H) 0.20 - 1.00 K/mcL LAB HEMETOLOGY METHOD 04/22/2025 3:40 PM EDT [facility] Eosinophils Absolute 0.02 0.00 - 0.50 K/[facility] LAB HEMETOLOGY METHOD 04/22/2025 3:40 PM EDT [facility] Basophils Absolute 0.04 0.00 - 0.20 K/[facility] LAB HEMETOLOGY METHOD 04/22/2025 3:40 PM EDT [facility] Immature Granulocytes Absolute 0.06(H) 0.00 - 0.03 K/[facility] LAB HEMETOLOGY METHOD 04/22/2025 3:40 PM EDT [facility] Blood Venous blood specimen / Unknown Venipuncture / Unknown 04/22/2025 3:25 PM EDT 04/22/2025 3:31 PM EDT us Andreea Carrera MD LAB BLOOD ORDERABLES Final Resul t Performing Organization Address [facility]/ZIP Co de Phone Number [facility] [address] [place] [address], [place] [phone] * Magnesium (04/22/2025 3:25 PM EDT) Magnesium 1.9 1.9 - 2.6 mg/dL LAB CHEMISTRY METHOD 04/22/2025 4:19 PM EDT [facility] Blood Venous blood specimen / Unknown Venipuncture / Unknown 04/22/2025 3:25 PM EDT 04/22/2025 3:31 PM EDT us Andreea Carrera MD LAB BLOOD ORDERABLES Final Resul t Performing Organization Address City/[facility]/ZIP Co de Phone Number [facility] [address] [place] [address], [place] [phone] * Lipase (04/22/2025 3:25 PM EDT) Lipase 35 13 - 75 unit/L LAB CHEMISTRY METHOD 04/22/2025 4:13 PM EDT [facility] Blood Venous blood specimen / Unknown Venipuncture / Unknown 04/22/2025 3:25 PM EDT 04/22/2025 3:31 PM EDT us Andreea Carrera MD LAB BLOOD ORDERABLES Final Resul t [facility] [address] [place] [address], [place] [phone] * (ABNORMAL) Comprehensive metabolic panel (04/22/2025 3:25 PM EDT) Sodium 135 133 - 145 mmol/L LAB CHEMISTRY METHOD 04/22/2025 4:13 PM EDT [facility] Potassium 3.2(L) 3.5 - 5.5 mmol/L LAB CHEMISTRY METHOD 04/22/2025 4:13 PM [facility] Chloride 103 96 - 110 mmol/L LAB CHEMISTRY METHOD 04/22/2025 4:13 PM [facility] CO2 19(L) 21 - 32 mmol/L LAB CHEMISTRY METHOD 04/22/2025 4:13 PM [facility] Anion Gap 13(H) 3 - 11 LAB CHEMISTRY METHOD 04/22/2025 4:13 PM [facility] Glucose 94 70 - 100 mg/dL LAB CHEMISTRY METHOD 04/22/2025 4:13 PM [facility] BUN 13 5 - 25 mg/dL LAB CHEMISTRY METHOD 04/22/2025 4:13 PM T [facility] Creatinine 1.06 0.50 - 1.10 mg/dL LAB CHEMISTRY METHOD 04/22/2025 4:13 PM [facility] eGFR 68 >=60 mL/min/1. 73m2 LAB CHEMISTRY METHOD 04/22/2025 4:13 PM [facility] Comment:Calculation based on the Chronic Kidney Disease Epidemiology Collaboration (CKD-EPI) equation refit without adjustment for race. BUN/Creatinine Ratio 12.3 LAB CHEMISTRY METHOD 04/22/2025 4:13 PM EDT [facility] Calcium 9.5 8.5 - 10.5 mg/dL LAB CHEMISTRY METHOD 04/22/2025 4:13 PM [facility] AST (SGOT) 15 10 - 42 unit/L LAB CHEMISTRY METHOD 04/22/2025 4:13 PM [facility] ALT (SGPT) 26 10 - 60 unit/L LAB CHEMISTRY METHOD 04/22/2025 4:13 PM T [facility] Alkaline Phosphatase 77 42 - 121 unit/L LAB CHEMISTRY METHOD 04/22/2025 4:13 PM [facility] Total Protein 7.7 6.0 - 8.0 g/dL LAB CHEMISTRY METHOD 04/22/2025 4:13 PM [facility] Albumin 3.8 3.2 - 5.0 g/dL LAB CHEMISTRY METHOD 04/22/2025 4:13 PM [facility] Total Bilirubin 0.6 0.0 - 1.4 mg/dL LAB CHEMISTRY METHOD 04/22/2025 4:13 PM [facility] Blood Venous blood specimen / Unknown Venipuncture / Unknown 04/22/2025 3:25 PM EDT 04/22/2025 3:31 PM EDT us Andreea Carrera MD LAB BLOOD ORDERABLES Final Resul t [facility] [address] [place] [address], from Last 3 Months Insurance [facility] [employer] Care Teams Student Activities Director Relationship Specialty Start Date End Date Vadim Young MD [address] [place] [address] Dr [place] PCP - General 01/10/24
== END 2025-06-28 09:49 | disposition home or self-care (01) ==
LOC: HO.HMCFM 09:16
PROVIDERS: PCP Family Medicine; Visit Provider Family Medicine
DX: E78.00 Pure hypercholesterolemia, unspecified (principal)

== ENCOUNTER → 2025-06-28 09:15 | Outpatient (BNVA) | payer OTHER, SELFPAY | PROVIDERS: PCP Family Medicine; Visit Provider Family Medicine | DX: E78.00 Pure hypercholesterolemia, unspecified (principal) | CPT/HCPCS: 99212 ==